=== PATIENT | male | born 1930 | race Caucasian/White ===

== ENCOUNTER 2017-04-17 09:51 | Inpatient (IN) | payer OTHER, MEDICARE ==
[~2017-04-17] VITALS: Ht 167.6 cm; Wt 76.8 kg
[~2017-04-17 09:51] MED LIST: BISCOLAX5 MG PO; COUMADIN 1 MG TA1 MG PO; COUMADIN 5 MG TA5 MG PO; ESCITALOPRAM20 MG PO; VENLAFAXINE HY150 MG PO; VITAMIN D1000 IU PO; XARELTO15 MG PO; XARELTO20 MG PO; [UNRECOGNIZED DRUG - OTHER] PO
[2017-04-17] MEDS ORDERED: GABAPENTIN300 M2 PO (10:24)
[2017-04-17] MEDS ORDERED: TAMSULOSIN HCL0.4 M1 PO (10:24)
[2017-04-17] MEDS ORDERED: WARFARIN SODIUM4 M1 PO (10:24)
--- NOTE | 2017-04-17 10:26 | ED AMS/SEIZURE/WEAK/DIZZY ---
History of Present Illness General Chief Complaint: General Adult Stated Complaint: PER PT WEAK "I CANT STAND UP" Source: patient Exam Limitations: no limitations Vital Signs & Intake/Output Vital Signs & Intake/Output Vital Signs Date Time Temp Pulse Resp B/P B/P Pulse O2 O2 Flow FiO2 Mean Ox Delivery Rate 04/17 1239 96.7 61 15 125/74 95 Room Air Room Air 04/17 1013 Room Air 04/17 0956 97.9 75 16 114/68 99 Room Air Allergies Coded Allergies: Penicillins (UNKNOWN 12/29/16) morphine (UNKNOWN 12/29/16) Reconcile Medications Gabapentin 300 MG CAPSULE 1 CAP PO TID NEURALGIA (Reported) Tamsulosin HCl 0.4 MG CAP.ER.24H 1 CAP PO DAILY BPH (Reported) Warfarin Sodium 4 MG TABLET 1 TAB PO DAILY HEART HEALTH (Reported) Triage Note: PT TO ED FOR FREQUENT FALLS OVER PAST 3 DAYS, STATING HE HAS HIT HIS HEAD "A FEW TIMES" DIFFICULT TO ASSESS D/T DEMENTIA AND UNSURE OF WHAT HAPPENED. PT NOW REPORTING HE HAS BEEN FEELING PROGRESSIVELY MORE WEAK OVER PAST WEEK WELL. Triage Nurses Notes Reviewed? yes Onset: Abrupt Duration: day(s):, constant Timing: recent history No Modifying Factors: none HPI: 87-year-old male comes into the emergency room for further evaluation of frequent falls at home. Patient has been feeling weak. He is also been feeling some dizziness prior to falling. He has been unable to walk recently. Denies any chest pain shortness of breath fever vomiting chills abdominal pain. He is on pain medication for chronic pain from trigeminal neuralgia. Denies any other system symptoms. (Tushar HAUSER,Mateo) Past History Travel History Traveled to [place] past 21 day No Medical History Any Pertinent Medical History? 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 Hepatic: NONE Renal: benign prost hyperplasia Musculoskeletal: degen joint disease, ARTHRITIS Psychiatric: anxiety, MAJOR DEPRESSIVE D/O Endocrine: NONE Blood Disorders: NONE Cancer(s): NONE INTERIOR HORTICULTURIST/Reproductive: NONE History of MRSA: No History of VRE: No History of CDIFF: No Influenza Vaccine: 12/09/16 Surgical History Surgical History: non-contributory Psychosocial History Who do you live with Family Services at Home None What is your primary language Kyrgyz Tobacco Use: Never used ETOH Use: denies use Illicit Drug Use: denies illicit drug use Family History Family History, If Any: MOTHER FH: breast cancer FATHER FH: muscular dystrophy Hx Contributory? No (Mateo Gutierrez) Review of Systems Review of Systems Constitutional: Reports: see HPI. EENTM: Reports: no symptoms. Respiratory: Reports: no symptoms. Cardiovascular: Reports: no symptoms. GI: Reports: no symptoms. Genitourinary: Reports: no symptoms. Musculoskeletal: Reports: see HPI. Skin: Reports: no symptoms. Neurological/Psychological: Reports: no symptoms. Hematologic/Endocrine: Reports: no symptoms. Immunologic/Allergic: Reports: no symptoms. All Other Systems: Reviewed and Negative (Mateo Gutierrez) Physical Exam Physical Exam General Appearance: no apparent distress, alert Head: atraumatic Eyes: Bilateral: normal appearance. Ears, Nose, Throat: normal ENT inspection, hearing grossly normal Neck: normal inspection Respiratory: no respiratory distress Cardiovascular: regular rate/rhythm Back: normal inspection Extremities: limited range of motion (BILATERAL) Neurologic/Psych: awake, alert Skin: intact Core Measures ACS in differential dx? No CVA/TIA Diagnosis No Sepsis Present: No Sepsis Focused Exam Completed? No (Mateo Gutierrez) Progress Differential Diagnosis: arrythmia, alcohol intoxication, benign positional vertigo, CVA/stroke, dehydration, electrolyte imbalance, intracranial Hem., intracranial mass/tumor, pneumonia, presyncope, post-traumatic vertigo, seizure disorder, subarachnoid Hem., UTI/pyelo Plan of Care: Orders Procedure Date/time Status Heart Healthy Diet 04/17 D Active ED Holding Orders 04/17 1254 Active Admit to inpatient 04/17 1254 Active Vital Signs 04/17 1254 Active Code Status 04/17 1254 Active PT Evaluate & Treat 04/17 1025 Active URINALYSIS 04/17 1025 Complete TROPONIN LEVEL 04/17 1025 Complete PARTIAL THROMBOPLASTIN TIME 04/17 1025 Complete PROTHROMBIN TIME 04/17 1025 Complete COMPREHENSIVE METABOLIC PANEL 04/17 1025 Complete CBC WITHOUT DIFFERENTIAL 04/17 1025 Complete EKG 04/17 1025 Active Theraputic Activities 15 Min 04/17 UNK Complete MOBILITY GOAL STATUS 04/17 UNK Complete MOBILITY CURRENT STATUS 04/17 UNK Complete PT EVAL LOW COMPLEX 20 MIN 04/17 UNK Complete Laboratory Tests 04/17/17 1157: Urine Color YEL, Urine Clarity CLEAR, Urine pH 6.0, Ur Specific [place] 1.020, Urine Protein NEG, Urine Ketones NEG, Urine Nitrite NEG, Urine Bilirubin NEG, Urine Urobilinogen 1.0, Ur Leukocyte Esterase NEG, Ur Microscopic EXAM NOT REQUIRED, Urine Hemoglobin NEG, Urine Glucose NEG 04/17/17 1027: Anion Gap 9, Estimated GFR > 60, BUN/Creatinine Ratio 16.4, Glucose 125 H, Calcium 9.9, Total Bilirubin 1.0, AST 16 L, ALT 18 L, Alkaline Phosphatase 68, Troponin I < 0.01, Total Protein 7.0, Albumin 4.0, Globulin 3.0, Albumin/ Globulin Ratio 1.3, PT 25.0 H, INR 2.27 H, APTT 38 H, CBC w Diff NO MAN DIFF REQ, RBC 4.89, MCV 87.4, MCH 28.9, MCHC 33.1, RDW 15.8 H, MPV 6.4 L, Gran % 75.1, Lymphocytes % 16.3 L, Monocytes % 5.7, Eosinophils % 2.3, Basophils % 0.6 , Absolute Granulocytes 5.6, Absolute Lymphocytes 1.2, Absolute Monocytes 0.4, Absolute Eosinophils 0.2, Absolute Basophils 0 Diagnostic Imaging: Viewed by Me: Radiology Read. Discussed w/RAD: Radiology Read. Initial ED EKG: normal sinus rhythm, rate (65) Comments: PATIENT: SHANIA HOLGUIN PRESENT AGE: 87 PATIENT ACCOUNT NO: [id number] : 31 LOCATION: [facility] ORDERING PHYSICIAN: Mateo HAUSER SERVICE DATE: 04/17/17 EXAM TYPE: CAT - CT HEAD WO IV CONTRAST EXAMINATION: CT HEAD WITHOUT CONTRAST CLINICAL INFORMATION: Fall. Hit head. COMPARISON: CT scan of the head dated 12/29/2016 and 10/23/2015. TECHNIQUE: Contiguous axial imaging was performed from the skull base to vertex without intravenous administration of contrast. DLP: 550.22 mGy-cm FINDINGS: There is no evidence of acute intracranial hemorrhage or territorial infarction. No abnormal mass effect or midline shift is seen. Mendez to white matter differentiation is well preserved. No extra-axial fluid collections are identified. The ventricles and sulci are mildly enlarged, consistent with involutional changes. Mild periventricular deep white matter low-attenuation and low-attenuation in the bilateral basal ganglia are again noted, consistent with ischemic small vessel disease and small lacunar infarctions, unchanged. Calcification of the carotid siphons is again noted. The osseous structures and are normal. Multiple punctate calcifications are again seen in the subcutaneous tissues of the forehead. The patient is status post bilateral lens extractions. There is a small air-fluid level or mucous retention cyst again noted in the right sphenoid sinus. Partial opacification of some of the right mastoid air cells is seen. The visualized portions of the remaining paranasal sinuses are well aerated. IMPRESSION: 1. No acute intracranial pathology. 2. Small lacunar infarctions in the basal ganglia and changes of ischemic small vessel disease in the periventricular deep white matter and mild parenchymal volume loss again noted, unchanged. 3. Mild right sphenoid sinus disease and partial opacification of some of the right mastoid air cells. DICTATED BY: Madonna Muro MD DATE/TIME DICTATED:04/17/171116 INTERIOR DECORATOR:BEE DATE/TIME TRANSCRIBED:04/17/171116 CONFIDENTIAL, DO NOT COPY WITHOUT APPROPRIATE AUTHORIZATION. <Electronically signed in Other Vendor System> SIGNED BY: Madonna Muro MD [id number] PATIENT: SHANIA HOLGUIN PRESENT AGE: 87 PATIENT ACCOUNT NO: [id number] : 31 LOCATION: [facility] ORDERING PHYSICIAN: Mateo HAUSER SERVICE DATE: 04/17/171025 EXAM TYPE: RAD - XRY-PORTABLE CHEST XRAY EXAMINATION: XR PORTABLE CHEST CLINICAL INFORMATION: Weakness. COMPARISON: Several prior chest x-rays, most recent of which is dated 05/24/2014. TECHNIQUE: Portable AP semierect view of the chest was obtained. FINDINGS: EKG leads are seen overlying the chest. The cardiomediastinal silhouette is within normal limits in size. Calcification of the aortic arch and mild ectasia and tortuosity of the ascending and descending aorta are noted, unchanged. Lungs bilaterally are symmetrically expanded and demonstrate minimal linear subsegmental atelectasis in the lung bases bilaterally. No focal consolidation, significant effusion or pneumothorax is seen. Degenerative changes as seen in both shoulder joints and mild vertebral spondylosis is noted throughout the mid and lower thoracic spine. Convex right thoracic curvature is noted. IMPRESSION: Bibasilar reticular opacities are noted, consistent with subsegmental atelectasis. No focal pneumonia. DICTATED BY: Madonna Muro MD DATE/TIME DICTATED:04/17/171114 INTERIOR DECORATOR:BEE DATE/TIME TRANSCRIBED:04/17/171114 CONFIDENTIAL, DO NOT COPY WITHOUT APPROPRIATE AUTHORIZATION. <Electronically signed in Other Vendor System> SIGNED BY: Madonna Muro MD 1121 (Mateo Gutierrez) Departure Departure Disposition: STILL A PATIENT Condition: Stable Clinical Impression Primary Impression: Multifactorial gait disorder Secondary Impressions: General weakness Referrals: Alexandria Jones MD (PCP/Family) Departure Forms: Customer Survey General Discharge Information Admission Note Spoke With: Juni Garcia MD Documentation of Exam: Documentation of any treatments & extenuating circumstances including Concerns Regarding Discharge (functional status, medication knowledge or non-compliance, living conditions, etc.) that warrant an admission rather than observation: Patient will require case management. Physical therapy consultation. Patient is not able to ambulate here in the emergency room. Medically not safe for discharge. Patient will require short-term rehabilitation. (Mateo Gutierrez) PA/CLAIM PROCESSOR Co-Sign Statement Statement: ED Attending supervision documentation- [X] I saw and evaluated the patient. I have also reviewed all the pertinent lab results and diagnostic results. I agree with the findings and the plan of care as documented in the PA's/CLAIM PROCESSOR's documentation. [X] I have reviewed the ED Record and agree with the PA's/CLAIM PROCESSOR's documentation. [] Additions or exceptions (if any) to the PAs/CLAIM PROCESSOR's note and plan are summarized below: [Patient is a very high risk to be discharged home. Patient will need admission for physical therapy consultation and treatment case management evaluation.] (Josiah BOBO,Matthias Echeverria)
[2017-04-17 10:43] LABS: ABSOLUTE BASOPHIL COUNT 0 /CUMM (0.0-0.2); ABSOLUTE EOSINOPHIL COUNT 0.2 /CUMM (0.0-0.7); ABSOLUTE GRANULOCYTE CT 5.6 /CUMM (1.4-6.5); ABSOLUTE LYMPH COUNT 1.2 /CUMM (1.2-3.4); ABSOLUTE MONOCYTE COUNT 0.4 /CUMM (0.10-0.60); BASOPHIL % 0.6 % (0.0-2.0); EOSINOPHIL % 2.3 % (0-5); GRANULOCYTE % 75.1 % (42.2-75.2); HEMATOCRIT 42.7 % (42-52); MEAN CORPUSCULAR HGB 28.9 PG (27.0-31.0); MEAN CORPUSCULAR HGB CONC 33.1 G/DL (33.0-37.0); MEAN CORPUSCULAR VOLUME 87.4 FL (80.0-94.0); MEAN PLATELET VOLUME 6.4 FL (7.4-10.4); PLATELET COUNT 296 /CUMM (130-400); RBC DISTRIBUTION WIDTH 15.8 % (11.5-14.5); RED BLOOD CELL CT 4.89 /CUMM (4.70-6.10); WHITE BLOOD CELL COUNT 7.4 /CUMM (4.8-10.8)
[2017-04-17 10:48] LABS: PTT 38 SEC (25-37)
--- NOTE | 2017-04-17 11:21 | RADIOLOGY REPORT ---
EXAMINATION: XR PORTABLE CHEST CLINICAL INFORMATION: Weakness. COMPARISON: Several prior chest x-rays, most recent of which is dated 05/24/2014. TECHNIQUE: Portable AP semierect view of the chest was obtained. FINDINGS: EKG leads are seen overlying the chest. The cardiomediastinal silhouette is within normal limits in size. Calcification of the aortic arch and mild ectasia and tortuosity of the ascending and descending aorta are noted, unchanged. Lungs bilaterally are symmetrically expanded and demonstrate minimal linear subsegmental atelectasis in the lung bases bilaterally. No focal consolidation, significant effusion or pneumothorax is seen. Degenerative changes as seen in both shoulder joints and mild vertebral spondylosis is noted throughout the mid and lower thoracic spine. Convex right thoracic curvature is noted. IMPRESSION: Bibasilar reticular opacities are noted, consistent with subsegmental atelectasis. No focal pneumonia.
--- NOTE | 2017-04-17 11:33 | CT SCAN REPORT ---
EXAMINATION: CT HEAD WITHOUT CONTRAST CLINICAL INFORMATION: Fall. Hit head. COMPARISON: CT scan of the head dated 12/29/2016 and 10/23/2015. TECHNIQUE: Contiguous axial imaging was performed from the skull base to vertex without intravenous administration of contrast. DLP: 550.22 mGy-cm FINDINGS: There is no evidence of acute intracranial hemorrhage or territorial infarction. No abnormal mass effect or midline shift is seen. Mendez to white matter differentiation is well preserved. No extra-axial fluid collections are identified. The ventricles and sulci are mildly enlarged, consistent with involutional changes. Mild periventricular deep white matter low-attenuation and low-attenuation in the bilateral basal ganglia are again noted, consistent with ischemic small vessel disease and small lacunar infarctions, unchanged. Calcification of the carotid siphons is again noted. The osseous structures and are normal. Multiple punctate calcifications are again seen in the subcutaneous tissues of the forehead. The patient is status post bilateral lens extractions. There is a small air-fluid level or mucous retention cyst again noted in the right sphenoid sinus. Partial opacification of some of the right mastoid air cells is seen. The visualized portions of the remaining paranasal sinuses are well aerated. IMPRESSION: 1. No acute intracranial pathology. 2. Small lacunar infarctions in the basal ganglia and changes of ischemic small vessel disease in the periventricular deep white matter and mild parenchymal volume loss again noted, unchanged. 3. Mild right sphenoid sinus disease and partial opacification of some of the right mastoid air cells.
--- NOTE | 2017-04-17 13:17 | History & Physical ---
Farzaneh BOBO,Nisreen 04/17/17 1316: General Information and HPI MD Statement: I have seen and personally examined SHANIA HOLGUIN and documented this H&P. The patient is a 87 year old M who presented with a patient stated chief complaint of [frequent falls and weakness]. Source of Information: patient, family, old records Exam Limitations: dementia History of Present Illness: 87-year-old male with past medical history of trigeminal neuralgia dementia, DVT on coumadinn, BPH, arthritis, anxiety, depression, Zenker's diverticulum present with complaints of frequent falls at home in the past 3-4 days. He also reports urinary incontinence but no fecal incontinence. He reports generalized weakness and dizziness, as well as strinking the back of his head when he fell. He denies any vision changes, headaches, palpitations, chest pain, shortness of breath, fever, nausea, vomiting, chills, or abdominal pain. He takes gabapentin for chronic pain from trigeminal neuralgia. 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 Hepatic: NONE Renal: benign prost hyperplasia Musculoskeletal: degen joint disease, ARTHRITIS Psychiatric: anxiety, MAJOR DEPRESSIVE D/O Endocrine: NONE Blood Disorders: NONE Cancer(s): NONE DIGITAL ADVERTISING SPECIALIST/Reproductive: NONE History of MRSA: No History of VRE: No History of CDIFF: No Influenza Vaccine: 12/09/16 Surgical History Surgical History: non-contributory Past Family/Social History Family History Relations & Conditions if any MOTHER FH: breast cancer FATHER FH: muscular dystrophy Psychosocial History Services at Home: None ETOH Use: denies use Illicit Drug Use: denies illicit drug use Review of Systems Review of Systems Constitutional: Reports: no symptoms. Exam & Diagnostic Data Last 24 Hrs of Vital Signs/I&O Vital Signs Date Time Temp Pulse Resp B/P B/P Pulse O2 O2 Flow FiO2 Mean Ox Delivery Rate 04/17 1239 96.7 61 15 125/74 95 Room Air Room Air 04/17 1013 Room Air 04/17 0956 97.9 75 16 114/68 99 Room Air Intake & Output 04/17 1600 04/17 0800 04/17 0000 Intake Total Output Total 50 Balance -50 Output, Urine 50 Patient 175 lb Weight Weight Reported by Patient Measurement Method Physical Exam General Appearance Alert, Oriented X3, Cooperative, No Acute Distress HEENT PERRLA, EOMI, Mucous Membr. moist/pink Cardiovascular Regular Rate, Normal S1, Normal S2 Lungs Clear to Auscultation, Normal Air Movement Abdomen Normal Bowel Sounds, Soft, No Tenderness, abd wall hernia Neurological Strength at 5/5 X4 Ext, Sensation Intact Extremities Normal Pulses, 1+ edema, 5/5 strength Last 24 Hrs of Labs/Matt: Laboratory Tests 04/17/17 1157: Urine Color YEL, Urine Clarity CLEAR, Urine pH 6.0, Ur Specific [place] 1.020, Urine Protein NEG, Urine Ketones NEG, Urine Nitrite NEG, Urine Bilirubin NEG, Urine Urobilinogen 1.0, Ur Leukocyte Esterase NEG, Ur Microscopic EXAM NOT REQUIRED, Urine Hemoglobin NEG, Urine Glucose NEG 04/17/17 1027: Anion Gap 9, Estimated GFR > 60, BUN/Creatinine Ratio 16.4, Glucose 125 H, Calcium 9.9, Total Bilirubin 1.0, AST 16 L, ALT 18 L, Alkaline Phosphatase 68, Troponin I < 0.01, Total Protein 7.0, Albumin 4.0, Globulin 3.0, Albumin/ Globulin Ratio 1.3, PT 25.0 H, INR 2.27 H, APTT 38 H, CBC w Diff NO MAN DIFF REQ, RBC 4.89, MCV 87.4, MCH 28.9, MCHC 33.1, RDW 15.8 H, MPV 6.4 L, Gran % 75.1, Lymphocytes % 16.3 L, Monocytes % 5.7, Eosinophils % 2.3, Basophils % 0.6 , Absolute Granulocytes 5.6, Absolute Lymphocytes 1.2, Absolute Monocytes 0.4, Absolute Eosinophils 0.2, Absolute Basophils 0 Diagnostic Data CXR Results Bibasilar reticular opacities are noted, consistent with subsegmental atelectasis. No focal pneumonia. Other Results CT head IMPRESSION: 1. No acute intracranial pathology. 2. Small lacunar infarctions in the basal ganglia and changes of ischemic small vessel disease in the periventricular deep white matter and mild parenchymal volume loss again noted, unchanged. 3. Mild right sphenoid sinus disease and partial opacification of some of the right mastoid air cells. Assessment/Plan Assessment: 87-year-old male with past medical history of trigeminal neuralgia dementia, DVT , BPH, arthritis, anxiety, depression, Zenker's diverticulum present with complaints of frequent falls at home in the past 3-4 days. Patient has been feeling weak with some dizziness, dizziness prior to falling. He denies any chest pain shortness of breath, fever, vomiting, chills, abdominal pain. He takes gabapentin for chronic pain from trigeminal neuralgia. Assessment 1. Multifactorial gait disorder r/o NPH 2. Generalized weakness 3. Hx of DVT on coumadin 4. Hx of Trigeminal neuralgia 5. Hx of Dementia Plan Admit to general medicine floor MRI head Carotid US Orthostats Physical therapy Patient will likely need short-term rehabilitation Case management evaluation Adequate pain management as needed Maintenance IVF N/S at 50cc/hr Recheck INR in AM and dose coumadin as needed Continue his impt home medications Heart Healthy diet DVT ppx with warfarin-INR therapeutic today Follow attending recommendations As Ranked By This Provider Problem List: 1. Multifactorial gait disorder Core Measures/Misc (10/25) Acute Coronary Syndrome ACS Diagnosis: No Congestive Heart Failure Congestive Heart Failure Diagnosis No Cerebrovascular Accident CVA/TIA Diagnosis: No VTE (View Protocol) VTE Risk Factors Acute Medical Illness No Mechanical VTE Prophylaxis d/t N/A MechProphylax Ordered No VTE Pharm Prophylaxis d/t NA PharmProphylax ordered Sepsis (View protocol) Sepsis Present: No Resident Review Statement Resident Statement: examined this patient Other Findings: see HPI Juni Garcia 04/17/17 1601: Attending MD Review Statement Attending Statement Attending MD Statement: examined this patient, discuss w/resident/PA/CRIMINAL JUSTICE PROFESSOR, agreed w/resident/PA/CRIMINAL JUSTICE PROFESSOR, discussed with family, reviewed EMR data (avail), discussed with nursing, discussed with case mgmt, reviewed images, amended to note Attending Assessment/Plan: 87 o/m with pmh of dementia, cataract, DVT on coumadin, zekner diverticulum , bph, degenrative joint disease, comes with recurrent falls in past 4 days. No LOC. No seizure like activity. No dizziness. He uses walker at home for ambulation. Denies vision changes, headache, chest pain, palpaitaions. PE unremarkable with no focal weakness. Labs and imaging noted. CT with chronic ischemic vessel diaseas and small lacunar infarcts appear to be old. Chest xray with subsegmental atelectasis. UA negative. INR 2.27. Admit to inaptient medical services. Will obtain MRI brain for recurrent falls, USG carotid, orthostats check, PT consult. Case management consult. Plan of care d/wed patinet and bedside.
[2017-04-17 16:45] VITALS: BP 133/79
[2017-04-17 22:16] VITALS: BP 122/70
[2017-04-17 23:47] VITALS: BP 125/72
[2017-04-18 06:20] VITALS: BP 133/74
[2017-04-18 08:50] LABS: ABSOLUTE BASOPHIL COUNT 0.1 /CUMM (0.0-0.2); ABSOLUTE EOSINOPHIL COUNT 0.2 /CUMM (0.0-0.7); ABSOLUTE GRANULOCYTE CT 4.6 /CUMM (1.4-6.5); ABSOLUTE LYMPH COUNT 1.2 /CUMM (1.2-3.4); ABSOLUTE MONOCYTE COUNT 0.5 /CUMM (0.10-0.60); BASOPHIL % 0.9 % (0.0-2.0); EOSINOPHIL % 3.3 % (0-5); GRANULOCYTE % 69.8 % (42.2-75.2); MEAN CORPUSCULAR HGB 29.1 PG (27.0-31.0); MEAN CORPUSCULAR HGB CONC 33.3 G/DL (33.0-37.0); MEAN CORPUSCULAR VOLUME 87.5 FL (80.0-94.0); MEAN PLATELET VOLUME 6.9 FL (7.4-10.4); PLATELET COUNT 262 /CUMM (130-400); RBC DISTRIBUTION WIDTH 15.3 % (11.5-14.5); RED BLOOD CELL CT 4.34 /CUMM (4.70-6.10); WHITE BLOOD CELL COUNT 6.6 /CUMM (4.8-10.8)
--- NOTE | 2017-04-18 10:05 | PN- Housestaff ---
Farzaneh BOBO,Nisreen 04/18/17 1005: Subjective Follow-up For: 1. Multifactorial gait disorder r/o NPH 2. Generalized weakness 3. Hx of DVT on coumadin 4. Hx of Trigeminal neuralgia 5. Hx of Dementia Complaints: no complaints Subjective: Pt seen and examined. Review of Systems Constitutional: Reports: no symptoms. Objective Last 24 Hrs of Vital Signs/I&O Vital Signs Date Time Temp Pulse Resp B/P B/P Pulse O2 O2 Flow FiO2 Mean Ox Delivery Rate 04/18 0959 57 133/74 04/18 0620 98.1 57 18 133/74 94 Room Air 04/17 2347 64 125/72 04/17 2216 97.8 65 18 122/70 93 Room Air 04/17 1645 98.0 72 20 133/79 98 Room Air 04/17 1535 97.6 76 18 124/76 96 Room Air 04/17 1239 96.7 61 15 125/74 95 Room Air Room Air Intake & Output 04/18 1600 04/18 0800 04/18 0000 Intake Total 300 640 300 Output Total Balance 300 640 300 Intake, IV 400 100 Intake, Oral 300 240 200 Number 1 0 Bowel Movements Patient 167 lb 163 lb Weight Weight Bed scale Bed scale Measurement Method Physical Exam General Appearance: Alert, Cooperative, oriented x 2 HEENT: Mucous Membr. moist/pink Cardiovascular: Regular Rate, Normal S1, Normal S2 Lungs: Clear to Auscultation, Normal Air Movement Abdomen: Soft, No Tenderness Extremities: 1+ pedal edema bilaterally Current Medications: Current Medications Sig/Gi Start time Last Medication Dose Route Stop Time Status Admin Enoxaparin Sodium 30 MG DAILY 04/17 2105 AC 04/18 SC 0959 Gabapentin 300 MG TID 04/17 2199 AC 04/18 PO 0958 Polyethylene Glycol 17 GM AT BEDTIME 04/17 2199 AC 04/17 PO 2223 Sodium Chloride 1,000 ML .Q20H 04/17 2114 AC 04/17 IV 2127 Tamsulosin HCl 0.4 MG DAILY 04/18 1000 AC 04/18 PO 0959 Warfarin Sodium 4 MG DAILY 04/18 1000 CAN PO Last 24 Hrs of Lab/Matt Results Last 24 Hrs of Labs/Mics: Laboratory Tests 04/18/17 0715: Anion Gap 8, Estimated GFR > 60, BUN/Creatinine Ratio 20.0, CBC w Diff NO MAN DIFF REQ, RBC 4.34 L, MCV 87.5, MCH 29.1, MCHC 33.3, RDW 15.3 H, MPV 6.9 L, Gran % 69.8, Lymphocytes % 18.7 L, Monocytes % 7.3, Eosinophils % 3.3, Basophils % 0.9, Absolute Granulocytes 4.6, Absolute Lymphocytes 1.2, Absolute Monocytes 0.5, Absolute Eosinophils 0.2, Absolute Basophils 0.1 04/17/17 1157: Urine Color YEL, Urine Clarity CLEAR, Urine pH 6.0, Ur Specific [place] 1.020, Urine Protein NEG, Urine Ketones NEG, Urine Nitrite NEG, Urine Bilirubin NEG, Urine Urobilinogen 1.0, Ur Leukocyte Esterase NEG, Ur Microscopic EXAM NOT REQUIRED, Urine Hemoglobin NEG, Urine Glucose NEG Assessment/Plan Assessment: 87-year-old male with past medical history of trigeminal neuralgia dementia, DVT , BPH, arthritis, anxiety, depression, Zenker's diverticulum present with complaints of frequent falls at home in the past 3-4 days. Patient has been feeling weak with some dizziness, dizziness prior to falling. He denies any chest pain shortness of breath, fever, vomiting, chills, abdominal pain. He takes gabapentin for chronic pain from trigeminal neuralgia. Assessment 1. Multifactorial gait disorder r/o NPH 2. Generalized weakness 3. Hx of DVT on coumadin 4. Hx of Trigeminal neuralgia 5. Hx of Dementia Plan F/u MRI head F/U Carotid US Orthostats neg Physical therapy Patient will need short-term rehabilitation Case management evaluation Maintenance IVF N/S at 50cc/hr F/U INR and dose coumadin as needed Continue his impt home medications Heart Healthy diet DVT ppx with warfarin-INR pending Follow attending recommendations Problem List: 1. Multifactorial gait disorder 2. Weakness 3. Dementia Pain Ratin Pain Location: na Pain Goal: Remain pain free Pain Plan: na Tomorrow's Labs & Rationales: INR, CBC Juni Garcia 04/18/17 1059: Attending MD Review Statement Attending Statement Attending MD Statement: examined this patient, discuss w/resident/PA/MOLDED GOODS INSPECTOR TRIMMER, agreed w/resident/PA/MOLDED GOODS INSPECTOR TRIMMER, discussed with family, reviewed EMR data (avail), discussed with nursing, discussed with case mgmt, reviewed images, amended to note Attending Assessment/Plan: 87 o/m with pmh of dementia, cataract, DVT on coumadin, zekner diverticulum , bph, degenrative joint disease, comes with recurrent falls in past 4 days. No LOC. No seizure like activity. No dizziness. He uses walker at home for ambulation. Denies vision changes, headache, chest pain, palpaitaions. PE unremarkable with no focal weakness. Labs and imaging noted. CT with chronic ischemic vessel diaseas and small lacunar infarcts appear to be old. Chest xray with subsegmental atelectasis. UA negative. INR 2.27. Admit to inaptient medical services. f/u MRI brain for recurrent falls, USG carotid, orthostats f/u, PT consult. Case management consult. Plan of care d/wed patinet and bedside.
--- NOTE | 2017-04-18 11:53 | Discharge Summary ---
Visit Information Visit Dates Admission Date: 04/17/17 Discharge Date: 04/28/17 Hospital Course Course Attending Physician: Dr. Rosanne Rincon Primary Care Physician: Alexandria Jones MD Consulting Request: Consulting Specialty: Psychiatry Hospital Course: 87-year-old male with past medical history of trigeminal neuralgia dementia, DVT , BPH, arthritis, anxiety, depression, Zenker's diverticulum who presented with complaints of frequent falls at home 3-4 days prior to admission. Patient has been feeling weak and had some dizziness prior to falling. He denied any chest pain, shortness of breath, fever, vomiting, chills, or abdominal pain on presentaion. He takes gabapentin for chronic pain from trigeminal neuralgia. Assessment 1. Multifactorial gait disorder MRI head, CT head and CXR negative for an acute process. Carotid US does not show any hemodynamically significant stenosis. Orthostats negative. Will need to continue physical therapy for re-conditioning. 2. Fracture of the R 5th metatarsal Foud on foot xray after patient began complaining of right foot pain while undergoing physical therapy. On exam foot was found to be mildly swollen so a foot a xray was obtained which showed a non-displaced right 5th metatarsal. Plan is for conservative management with surgical boot, ambulate as tolerated. Continue ice and elevation. Outpatient follow up with podiatry recommended. 3. History of Depression, anxiety and dementia with suicidal ideation Initially he was not on medication for depression and anxiety, however his hospital course was complicated by patient's expression of suicidal ideation, saying "he will hurt himself if given the chance". He was also found to have a plan of throwing himself down the stairs if given the opportunity. He is pre- occupied with his finaces and does not want to eave his banckrupt due to the financial burden of his illness. He was placed on a 1:1 sitter and after a psychiatric evaluation he was started on Depakote sprinkles 125mg twice a day and sertraline 150mg daily. After re-evaluation by psychiatrist, her 1:1 sitter was discontinued and patient has remained stable in the past 24hrs. Plan is for [facility] placement. Please watch for any suicidal tendencies 4. History of DVT on coumadin Patient is on 4mg of coumadin daily at home which was continued in the hospital. He was monitored with daily INR and INR on discharge is 2.0. Please continue regular INR check and dose coumadin as needed. 5. History of Trigeminal neuralgia Stable. Please continue his home dose of Gabapentin 300mg TID 6. History of BPH Continue Tamsulosin 0.4mg daily Complications: Suicidal Ideation Allergies: Coded Allergies: Penicillins (UNKNOWN 12/29/16) morphine (UNKNOWN 12/29/16) Significant Procedures: none Disposition Summary Disposition Principal Diagnosis: Mutifactorial gait disorder Generalized weakness Depression, Anxiety with Suicidal ideation Dementia Non-displaced fracture of the 5th metatarsal on the Right foot Additional Diagnosis: History of DVT on coumadin, Trigeminal neuralgia, History of BPH Discharge Disposition: SNF Discharge Instructions General Discharge Information Code Status: Full Code Patient's Diet: Heart healthy Patient's Activity: As tolerated Physical therapy for re-conditioning Follow-Up Instructions/Appts: Follow up with your PCP in 1 week Follow-up with Dr. Travis, Entertainment Musician, within 2 weeks of discharge. We have provided you with a referral to evaluate your toe fracture. Check INR q week and dose coumadin to keep INR therapeutic 2-3 Medications at Discharge Discharge Medications: Continue taking these medications: Tamsulosin HCl (Tamsulosin HCl) 0.4 MG CAP.ER.24H 1 Capsule ORAL DAILY Qty = 60 Comments: Last Taken:04/28/17 Time:9AM Warfarin Sodium (Warfarin Sodium) 4 MG TABLET 1 Tablet ORAL DAILY Qty = 30 Comments: Last Taken:04/27/17 Time:4PM Gabapentin (Gabapentin) 300 MG CAPSULE 1 Capsule ORAL THREE TIMES DAILY Qty = 540 Comments: Last Taken:04/28/17 Time:9AM Start taking the following new medications: Divalproex Sodium (Depakote Sprinkle) 125 MG CAP.SPRINK 125 Milligram ORAL TWICE DAILY Qty = 30 No Refills Comments: Last Taken:04/28/17 Time:9AM Sertraline HCl (Zoloft) 100 MG TABLET 150 Milligram ORAL DAILY Qty = 30 No Refills Comments: Last Taken: 150MG GIVEN 04/28/17 AT 9AM Copies To: Robert BOBO,[place]; Jerrod Travis DPM
[2017-04-18 13:12] LABS: PT 24.1 SEC (9.4-12.5)
[2017-04-18 13:47] VITALS: BP 118/62
--- NOTE | 2017-04-18 14:47 | ULTRASOUND REPORT ---
EXAMINATION: DUPLEX BILATERAL CAROTID ULTRASOUND CLINICAL INFORMATION: Recurrent falls. COMPARISON: Carotid ultrasound 05/30/2012. TECHNIQUE: Duplex bilateral carotid US was performed using real-time ultrasound and Doppler techniques (integrating B-mode 2D vascular images, Doppler spectral analysis and color flow Doppler imaging). These techniques were utilized to interrogate the extracranial carotid and vertebral arteries bilaterally. The degree of stenosis is based off criteria similar to NASCET. FINDINGS: No plaque is seen at the carotid bifurcations or within the internal carotid arteries. All velocities are within normal limits. The vertebral arteries show antegrade flow. The external carotid arteries appear normal. IMPRESSION: No evidence of a hemodynamically significant stenosis involving the internal carotid arteries.
[2017-04-18 22:21] VITALS: BP 138/77
[2017-04-19 06:20] VITALS: BP 128/76
--- NOTE | 2017-04-19 07:19 | PN- Housestaff ---
Abdirahman BOBO,Matthias 04/19/17 0719: Subjective Follow-up For: Multifactorial gait disorder r/o NPH Generalized weakness Suicidal ideatoion Subjective: Patient was seen and examined at bedside. He is resting comfortably. Overnight he reportedly expressed suicidal ideations and compared frustrated with the nursing staff. He was placed on a one-to-one sitter. He continues to express frustration and states that he feels depressed about the impending cost of his hospitalization. Says that reports that he does consider hurting or killing himself but has never formulated a plan to enact these thoughts. He has no complaints of pain, denies any chest pain, shortness of breath, nausea, vomiting , fever, chills. Review of Systems Constitutional: Reports: no symptoms. EENTM: Reports: no symptoms. Cardiovascular: Reports: no symptoms. Respiratory: Reports: no symptoms. Gastrointestinal: Reports: no symptoms. Genitourinary: Reports: no symptoms. Musculoskeletal: Reports: no symptoms. Neurological/Psychological: Reports: see HPI, depressed, other. Objective Last 24 Hrs of Vital Signs/I&O Vital Signs Date Time Temp Pulse Resp B/P B/P Pulse O2 O2 Flow FiO2 Mean Ox Delivery Rate 04/19 0620 98.2 57 18 128/76 94 Room Air 04/18 2221 97.9 64 20 138/77 95 Room Air 04/18 1347 97.8 71 20 118/62 95 04/18 0959 57 133/74 Intake & Output 04/19 0800 04/19 0000 04/18 1600 Intake Total 400 150 800 Output Total 500 250 Balance -100 -100 800 Intake, IV 400 100 Intake, Oral 50 800 Number 1 1 1 Bowel Movements Output, Urine 500 250 Patient 169 lb Weight Weight Bed scale Measurement Method Physical Exam General Appearance: Alert, Oriented X3, Cooperative, No Acute Distress Skin Temp/Moisture Exam: Warm/Dry Cardiovascular: Regular Rate, Normal S1, Normal S2 Lungs: Clear to Auscultation, Normal Air Movement Abdomen: Normal Bowel Sounds, Soft, No Tenderness Neurological: Normal Speech, Normal Tone, Sensation Intact Extremities: No Clubbing, No Cyanosis, No Edema Current Medications: Current Medications Sig/Gi Start time Last Medication Dose Route Stop Time Status Admin Enoxaparin Sodium 30 MG DAILY 04/17 2105 AC 04/18 SC 0959 Gabapentin 300 MG TID 04/17 2199 AC 04/18 PO 2222 Polyethylene Glycol 17 GM AT BEDTIME 04/17 2200 AC 04/17 PO 2223 Sodium Chloride 1,000 ML .Q20H 04/17 2115 AC 04/18 IV 1836 Tamsulosin HCl 0.4 MG DAILY 04/18 1000 AC 04/18 PO 0959 Warfarin Sodium 4 MG COUMADIN 1700 ONE 04/18 1700 DC 04/18 PO 04/18 1701 1700 Last 24 Hrs of Lab/Matt Results Last 24 Hrs of Labs/Mics: Laboratory Tests 04/18/17 1246: PT 24.1 H, INR 2.19 H 04/18/17 1100: PT Cancelled, INR Cancelled Assessment/Plan Assessment: Patient is an 87-year-old male with a PMH significant for trigeminal neuralgia, dementia, DVT on warfarin, BPH, arthritis, anxiety, depression, Zenker's diverticulum who presented complaining of frequent falls at home. He has been experiencing weakness with associated dizziness and falls. He denies any associated symptoms indicative of neuro cardiogenic syncope. #Multifactorial gait disorder with associated weakness -Follow-up MRI results to rule out possible NPH, although this could possibly represent physical deconditioning -Follow-up physical therapy and medications #History of depression with suicidal ideations Patient is not an active plan, and does not seem to be a threat to himself at this time, he admits to being frustrated with the current situation and feeling depressed about the impending medical bills from this hospitalization -Psychiatry consult has been placed, will follow-up recommendations #Chronic medical problems -Continue home medications -Dose Coumadin based on INR Diet: Heart healthy DVT prophylaxis: Warfarin CODE STATUS: Full code Problem List: 1. Dementia 2. Multifactorial gait disorder 3. Depression 4. Suicidal ideation Pain Ratin Pain Location: none Pain Goal: Remain pain free Pain Plan: pain pathway Tomorrow's Labs & Rationales: none Severo Salazar MD 04/19/17 1432: Attending MD Review Statement Attending Statement Attending MD Statement: examined this patient, discuss w/resident/PA/SHOP SUPERINTENDENT, agreed w/resident/PA/SHOP SUPERINTENDENT, reviewed EMR data (avail) Attending Assessment/Plan: Follow up MRI, psychiatry consult, PT eval, continue home medications
[2017-04-19 09:10] LABS: ABSOLUTE BASOPHIL COUNT 0.1 /CUMM (0.0-0.2); ABSOLUTE EOSINOPHIL COUNT 0.3 /CUMM (0.0-0.7); ABSOLUTE GRANULOCYTE CT 4.9 /CUMM (1.4-6.5); ABSOLUTE LYMPH COUNT 1.2 /CUMM (1.2-3.4); ABSOLUTE MONOCYTE COUNT 0.5 /CUMM (0.10-0.60); BASOPHIL % 0.8 % (0.0-2.0); EOSINOPHIL % 3.9 % (0-5); GRANULOCYTE % 71.1 % (42.2-75.2); HEMATOCRIT 39.1 % (42-52); MEAN CORPUSCULAR VOLUME 87.9 FL (80.0-94.0); MEAN PLATELET VOLUME 6.7 FL (7.4-10.4); PLATELET COUNT 276 /CUMM (130-400); RBC DISTRIBUTION WIDTH 15.5 % (11.5-14.5); RED BLOOD CELL CT 4.44 /CUMM (4.70-6.10); WHITE BLOOD CELL COUNT 6.9 /CUMM (4.8-10.8)
[2017-04-19 09:33] LABS: PT 20.1 SEC (9.4-12.5)
--- NOTE | 2017-04-19 12:22 | MRI REPORT ---
EXAMINATION: MR BRAIN WITHOUT AND WITH CONTRAST CLINICAL INFORMATION: 87-year-old man with recurrent falls and urinary incontinence. COMPARISON: 04/17/[address] TECHNIQUE: MRI of the brain was obtained using routine sequences before and after the intravenous administration of 7 mL of Gadavist. FINDINGS: Scattered patchy and punctate foci of increased T2 signal are seen throughout the supratentorial and pontine white matter, presumably a manifestation of moderate chronic microvascular ischemic changes. The ventricles and sulcal spaces are diffusely prominent due to chronic volume loss. No focal reduced diffusion is seen to suggest acute or subacute cerebral ischemia. No intracranial mass, intracerebral edema, intra-axial blood products, midline shift, or extra-axial collection is visualized. No pathologic enhancement is appreciated on postcontrast sequences. Normal arterial and venous vascular flow voids are present. A mucus retention cyst is visible in the right maxillary sinus. IMPRESSION: Motion degraded exam demonstrates moderate chronic small vessel ischemic changes and volume loss. No imaging evidence of acute cerebral ischemia or hemorrhage.
--- NOTE | 2017-04-19 13:06 | Cons- Psychiatry ---
Psychiatric Consult Date of Consult: 04/19/17 Reason for Consult: SI Allergies: Coded Allergies: Penicillins (UNKNOWN 12/29/16) morphine (UNKNOWN 12/29/16) Past History Past Medical History Neurological: dementia EENT: cataracts Cardiovascular: DVT Respiratory: NONE Gastrointestinal: DIVERTICUM OF ESOPHAGUS ZERIKER DIVERTICULUM Hepatic: NONE Renal: benign prost hyperplasia Musculoskeletal: degen joint disease, ARTHRITIS Psychiatric: anxiety, MAJOR DEPRESSIVE D/O Endocrine: NONE Blood Disorders: NONE Cancer(s): NONE CARBON BLOCKS PRESS OPERATOR/Reproductive: NONE Past Surgical History Surgical History: non-contributory Psychosocial History Strengths/Capabilities: Supportive and son Desire to feel better Compliant with anti-depressant Physical Limitations (Interventions): Reports intermittent difficulty swallowing Psychiatric Treatment History Risk Factors: age (under 24/over 65), chronic/serious med cond., isolate/no social support, male Assessment/Plan Impression: Pt seen and examined, chart and labs reviewed. This is an 87 y/o gentleman w/ PMH trigeminal neuralgia, DVT, BPH, arthritis, Zenker's diverticulum, dementia, depression and anxiety who presented to ED BIB after several falls. Hit head but no loss of consciousness. Consult called for depression and patient making statements that he wants to . Pt reports feeling hopeless with low mood, many preoccupations, wanting to just , "I just want to go to sleep and not wake up." Pt preoccupied with finances, relationship with , discusses long life of pain. States he will hurt himself in the hospital is he gets a chance. He will not divulge how he would accomplish this. "I dont want to tell you." Then states he will make himself fall or swallow all his pills. Per nursing pt confused last night, ?, 1:1 states he has been pleasant this am. states she has never seen him this bad and is moved to tears. No AH, VH, HI. No other complaints. Past psych HX: Unable to recall. states he has been on antidepressants, not working. No substance abuse. Mild dementia. FH: believes his mother was depressed. Pt states she was angry all the time. 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 Graduated high school. MSE: Elderly gentleman in [facility] sitting up in chair in NAD. Pleasant and cooperative. Speech is clear. Thought form is linear Thought content sadness, depressive cognitions, suicidal ideation with plan and intent. Insight: knows he is depressed, not aware he can be treated and feel better. Judgment poor Lab ALT 18 U/L L 04/17/17 1027 AST 16 U/L L 04/17/17 1027 Albumin 4.0 g/dL 04/17/17 1027 BUN 20 mg/dL 04/18/17 0715 Carbon Dioxide 24 mmol/L 04/18/17 0715 Chloride 106 mmol/L 04/18/17 0715 Creatinine 1.0 mg/dL 04/18/17 0715 Glucose 125 mg/dL H 04/17/17 1027 Potassium 4.3 mmol/L 04/18/17 0715 Sodium 138 mmol/L 04/18/17 0715 INR 1.83 H 04/19/17 0735 Hct 39.1 % L 04/19/17 0735 Hgb 12.9 G/DL L 04/19/17 0735 Plt Count 276 /CUMM 04/19/17 0735 Urine Nitrite NEG 04/17/17 1157 Meds: At home on zoloft 150 mg Qdaily, depakote sprinkles 125 mg BID Allergies PCN, morphine Current Medications Sig/Gi Start time Last Medication Dose Route Stop Time Status Admin Enoxaparin Sodium 30 MG DAILY 04/17 2106 AC 04/18 SC 0959 Gabapentin 300 MG TID 04/17 2200 AC 04/18 PO 2222 Polyethylene Glycol 17 GM AT BEDTIME 04/17 2200 AC 04/17 PO 2223 Sodium Chloride 1,000 ML .Q20H 04/17 2115 AC 04/18 IV 1836 Tamsulosin HCl 0.4 MG DAILY 04/18 1000 AC 04/18 PO 0959 Warfarin Sodium 4 MG COUMADIN 1700 ONE 04/18 1700 DC 04/18 PO 04/18 1701 1700 A/ 87 yo MWM w/ MMP depression, dementia and anxiety who presented for frequent falls, MRI pending. Suggestin:1 patient is actively suicidal Restart sertraline 150 mg qDaily Restart depakote sprinkles 125 mg BID Pt requires d/c to psych bed; prefers local [place] or [place]; will search for bed and follow up. Thank you for this consult. Gris Moreno MD Pager #[phone]
[2017-04-19 14:16] VITALS: BP 120/73
[2017-04-19 23:09] VITALS: BP 123/81
--- NOTE | 2017-04-20 06:54 | PN- Housestaff ---
Abdirahman BOBO,Matthias 04/20/17 0653: Subjective Follow-up For: Multifactorial gait disorder r/o NPH Generalized weakness Suicidal ideatoion Subjective: Patient was seen and examined at bedside. He is resting comfortably. No acute events overnight. He has been on continuous patient safety monitoring since his initial suicidal ideation. He has no new complaints but continues to report episodes of depression and suicidal ideations. He claims that these are not persistent thoughts but do occur occasionally and have happened since our last meeting yesterday. He offers no new complaints. Review of Systems Constitutional: Reports: weakness. EENTM: Reports: no symptoms. Cardiovascular: Reports: no symptoms. Respiratory: Reports: no symptoms. Gastrointestinal: Reports: no symptoms. Genitourinary: Reports: no symptoms. Musculoskeletal: Reports: no symptoms. Objective Last 24 Hrs of Vital Signs/I&O Vital Signs Date Time Temp Pulse Resp B/P B/P Pulse O2 O2 Flow FiO2 Mean Ox Delivery Rate 04/19 2309 98.6 73 18 123/81 94 04/19 1416 97.4 74 20 120/73 95 04/19 0748 128/76 Intake & Output 04/20 0800 04/20 0000 04/19 1600 Intake Total 700 250 Output Total 300 Balance 400 250 Intake, IV 400 Intake, Oral 300 250 Output, Urine 300 Physical Exam General Appearance: Alert, Oriented X3, Cooperative, No Acute Distress Skin Temp/Moisture Exam: Warm/Dry Cardiovascular: Regular Rate, Normal S1, Normal S2 Lungs: Clear to Auscultation, Normal Air Movement Abdomen: Normal Bowel Sounds, Soft, No Tenderness Extremities: No Clubbing, No Cyanosis, No Edema Current Medications: Current Medications Sig/Gi Start time Last Medication Dose Route Stop Time Status Admin Divalproex Sodium 125 MG BID 04/19 2199 AC 04/19 PO 2123 Enoxaparin Sodium 30 MG DAILY 04/17 2105 AC 04/19 SC 0748 Gabapentin 300 MG TID 04/17 2199 AC 04/19 PO 212 Patient Medication 1 ED ONE ONE 04/19 1615 DC Teaching ED 04/19 1616 Polyethylene Glycol 17 GM AT BEDTIME 04/17 2199 AC 04/17 PO 2223 Sertraline HCl 150 MG DAILY 04/19 1600 AC 04/19 PO 1659 Sodium Chloride 1,000 ML .Q20H 04/17 2114 AC 04/19 IV 2131 Tamsulosin HCl 0.4 MG DAILY 04/18 1000 AC 04/19 PO 0748 Warfarin Sodium 5 MG COUMADIN 1700 04/19 1700 DC 04/19 PO 04/19 1362 4175 Last 24 Hrs of Lab/Matt Results Last 24 Hrs of Labs/Mics: Laboratory Tests 04/19/17 0735: PT 20.1 H, INR 1.83 H, CBC w Diff NO MAN DIFF REQ, RBC 4.44 L, MCV 87.9, MCH 29.0, MCHC 33.0, RDW 15.5 H, MPV 6.7 L, Gran % 71.1, Lymphocytes % 17.6 L, Monocytes % 6.6, Eosinophils % 3.9, Basophils % 0.8, Absolute Granulocytes 4.9, Absolute Lymphocytes 1.2, Absolute Monocytes 0.5, Absolute Eosinophils 0.3, Absolute Basophils 0.1 Orders Radiology Findings: MRI head FINDINGS: Scattered patchy and punctate foci of increased T2 signal are seen throughout the supratentorial and pontine white matter, presumably a manifestation of moderate chronic microvascular ischemic changes. The ventricles and sulcal spaces are diffusely prominent due to chronic volume loss. No focal reduced diffusion is seen to suggest acute or subacute cerebral ischemia. No intracranial mass, intracerebral edema, intra-axial blood products, midline shift, or extra-axial collection is visualized. No pathologic enhancement is appreciated on postcontrast sequences. Normal arterial and venous vascular flow voids are present. A mucus retention cyst is visible in the right maxillary sinus. IMPRESSION: Motion degraded exam demonstrates moderate chronic small vessel ischemic changes and volume loss. No imaging evidence of acute cerebral ischemia or hemorrhage. Assessment/Plan Assessment: Patient is an 87-year-old male with a PMH significant for trigeminal neuralgia, dementia, DVT on warfarin, BPH, arthritis, anxiety, depression, Zenker's diverticulum who presented complaining of frequent falls at home. He has been experiencing weakness with associated dizziness and falls. He denies any associated symptoms indicative of neuro cardiogenic syncope. #Multifactorial gait disorder with associated weakness MRI showed chronic small vessel ischemic changes. With no acute pathology -Follow-up physical therapy for recommendations #History of depression with suicidal ideations Patient continues to complain of depression with suicidal ideation -Started on sertraline and Depakote, all these medications can interact with warfarin it is moderately, and interaction and we will be monitoring his INR closely. -Psychiatry as recommended placement in a geriatric psychiatric bed #Chronic medical problems -Continue home medications -Dose Coumadin based on INR Diet: Heart healthy DVT prophylaxis: Warfarin CODE STATUS: Full code Problem List: 1. Suicidal ideation 2. Dementia 3. Multifactorial gait disorder 4. Depression Pain Ratin Pain Location: none Pain Goal: Remain pain free Pain Plan: pain pathway Tomorrow's Labs & Rationales: INR and CBC Severo Salazar MD 04/20/17 1242: Attending MD Review Statement Attending Statement Attending MD Statement: examined this patient, discuss w/resident/PA/ROUGH AND TRUEING MACHINE OPERATOR, agreed w/resident/PA/ROUGH AND TRUEING MACHINE OPERATOR, reviewed EMR data (avail) Attending Assessment/Plan: Doing well, no acute events. Will continue current management, follow psychiatry recommendations, pursue meryl-psych placement, DVT PPx
[2017-04-20 06:58] VITALS: BP 136/82
[2017-04-20 08:48] LABS: PT 19.4 SEC (9.4-12.5)
[2017-04-20 09:01] LABS: ABSOLUTE BASOPHIL COUNT 0.1 /CUMM (0.0-0.2); ABSOLUTE EOSINOPHIL COUNT 0.3 /CUMM (0.0-0.7); ABSOLUTE GRANULOCYTE CT 6.3 /CUMM (1.4-6.5); ABSOLUTE LYMPH COUNT 1.2 /CUMM (1.2-3.4); ABSOLUTE MONOCYTE COUNT 0.5 /CUMM (0.10-0.60); BASOPHIL % 0.7 % (0.0-2.0); EOSINOPHIL % 3.6 % (0-5); GRANULOCYTE % 74.9 % (42.2-75.2); HEMATOCRIT 38.4 % (42-52); MEAN CORPUSCULAR HGB 29.3 PG (27.0-31.0); MEAN CORPUSCULAR HGB CONC 33.4 G/DL (33.0-37.0); MEAN CORPUSCULAR VOLUME 87.9 FL (80.0-94.0); MEAN PLATELET VOLUME 6.5 FL (7.4-10.4); PLATELET COUNT 267 /CUMM (130-400); RBC DISTRIBUTION WIDTH 15.5 % (11.5-14.5); RED BLOOD CELL CT 4.37 /CUMM (4.70-6.10); WHITE BLOOD CELL COUNT 8.5 /CUMM (4.8-10.8)
[2017-04-20 14:08] VITALS: BP 110/70
[2017-04-20] MEDS ORDERED: DEPAKOTE SPRIN125 M1 PO (20:41)
[2017-04-20] MEDS ORDERED: ZOLOFT100 M1 PO (20:41)
--- NOTE | 2017-04-20 20:43 | Patient Discharge Instructions ---
Discharge Instructions General Discharge Information You were seen/treated for: Multifocal gait instability Depression Suicidal Ideation Special Instructions: Follow-up with Dr. Travis, Welfare Supervisor, within 2 weeks of dishcarge. We have provided you with a referral. Have INR checked and warfarin dosed appropriately during your stay at [facility]. Acute Coronary Syndrome Inclusion Criteria At DC or during hospital stay patient has or had the following: ACS DIAGNOSIS No Discharge Core Measures Meds if any: Prescribed or Continued at Discharge Meds if any: NOT Prescribed or Continued at Discharge Congestive Heart Failure Inclusion Criteria At DC or during hospital stay patient has or had the following: CHF DIAGNOSIS No Discharge Core Measures Meds if any: Prescribed or Continued at Discharge Meds if any: NOT Prescribed or Continued at Discharge Cerebrovascular accident Inclusion Criteria At CA or during hospital stay patient has or had the following: CVA/TIA Diagnosis No Discharge Core Measures Meds if any: Prescribed or Continued at Discharge Meds if any: NOT Prescribed or Continued at Discharge Venous thromboembolism Inclusion Criteria VTE Diagnosis No VTE Type NONE VTE Confirmed by (Test) NONE Discharge Core Measures - Per Current guidelines, there needs to be overlap - treatment for the first 5 days of Warfarin therapy. - If discharged on Warfarin prior to 5 days of - overlap therapy, the patient will need to be - assessed for post discharge needs including - *Post discharge parental anticoagulation - *Warfarin and/or parental anticoagulation education - *Follow up date to check INR post discharge At least 5 days overlap therapy as Inpatient No Meds if any: Prescribed or Continued at Discharge Note: Overlap Therapy is Warfarin and Anticoagulant Meds if any: NOT Prescribed or Continued at Discharge
[2017-04-20 22:43] VITALS: BP 134/82
[2017-04-21 06:48] VITALS: BP 128/76
--- NOTE | 2017-04-21 07:07 | PN- Housestaff ---
Abdirahman BOBO,Matthias 04/21/17 0707: Subjective Follow-up For: Multifactorial gait disorder Generalized weakness Suicidal ideatoion Subjective: Patient was examined at bedside. He was resting comfortably. He had no acute events overnight. He is reporting pain with urination. He typically continues to report intermittent episodes of depression with suicidal ideation, with a plan to himself down a flight of stairs. He offers no other complaints and despite his reports depression and SI he has a very pleasant demeanor during all of our encounters. Review of Systems Constitutional: Reports: weakness. EENTM: Reports: no symptoms. Cardiovascular: Reports: no symptoms. Respiratory: Reports: no symptoms. Gastrointestinal: Reports: no symptoms. Genitourinary: Reports: discharge. Musculoskeletal: Reports: no symptoms. Skin: Reports: no symptoms. Objective Last 24 Hrs of Vital Signs/I&O Vital Signs Date Time Temp Pulse Resp B/P B/P Pulse O2 O2 Flow FiO2 Mean Ox Delivery Rate 04/21 0648 97.7 62 18 128/76 92 Room Air 04/20 2243 98.1 64 134/82 94 Room Air 04/20 1408 97.7 65 18 110/70 95 04/20 0905 136/82 04/20 0802 Room Air Room Air 04/20 0733 Room Air Room Air Intake & Output 04/21 0800 04/21 0000 04/20 1600 Intake Total 830 400 Output Total 650 300 Balance -650 530 400 Intake, IV 350 400 Intake, Oral 480 Output, Urine 650 300 Physical Exam General Appearance: Alert, Oriented X3, Cooperative, No Acute Distress Skin Temp/Moisture Exam: Warm/Dry Cardiovascular: Regular Rate, Normal S1, Normal S2 Lungs: Clear to Auscultation, Normal Air Movement Abdomen: Normal Bowel Sounds, Soft, No Tenderness Current Medications: Current Medications Sig/Gi Start time Last Medication Dose Route Stop Time Status Admin Divalproex Sodium 125 MG BID 04/19 2199 AC 04/20 PO 2123 Enoxaparin Sodium 30 MG DAILY 04/17 2105 AC 04/20 SC 0906 Gabapentin 300 MG TID 04/17 2199 AC 04/20 PO 2123 Polyethylene Glycol 17 GM AT BEDTIME 04/17 2199 AC 04/20 PO 212 Sertraline HCl 150 MG DAILY 04/19 1600 AC 04/20 PO 09 Sodium Chloride 1,000 ML .Q20H 04/17 2114 AC 04/20 IV 1754 Tamsulosin HCl 0.4 MG DAILY 04/18 1000 AC 04/20 PO 0905 Warfarin Sodium 7.5 MG COUMADIN 1700 ONE 04/20 1700 DC 04/20 PO 04/20 1701 1649 Last 24 Hrs of Lab/Matt Results Last 24 Hrs of Labs/Mics: Laboratory Tests 04/20/17 0750: PT 19.4 H, INR 1.77 H, CBC w Diff NO MAN DIFF REQ, RBC 4.37 L, MCV 87.9, MCH 29.3, MCHC 33.4, RDW 15.5 H, MPV 6.5 L, Gran % 74.9, Lymphocytes % 14.7 L, Monocytes % 6.1, Eosinophils % 3.6, Basophils % 0.7, Absolute Granulocytes 6.3, Absolute Lymphocytes 1.2, Absolute Monocytes 0.5, Absolute Eosinophils 0.3, Absolute Basophils 0.1 Assessment/Plan Assessment: Patient is an 87-year-old male with a PMH significant for trigeminal neuralgia, dementia, DVT on warfarin, BPH, arthritis, anxiety, depression, Zenker's diverticulum who presented complaining of frequent falls at home. He has been experiencing weakness with associated dizziness and falls. He denies any associated symptoms indicative of neuro cardiogenic syncope. #Multifactorial gait disorder with associated weakness MRI showed chronic small vessel ischemic changes. With no acute pathology -Patient is awaiting placement in geriatric psych with -Continue to work with physical therapy #History of depression with suicidal ideations Patient continues to complain of depression with suicidal ideation -Continue sertraline and Depakote -Psychiatry as recommended placement in a geriatric psychiatric bed #Chronic medical problems -Continue home medications -Dose Coumadin based on INR #New-onset dysuria -Follow-up UA and urine culture Diet: Heart healthy DVT prophylaxis: Warfarin CODE STATUS: Full code Problem List: 1. Multifactorial gait disorder 2. Dementia 3. Suicidal ideation 4. Depression Pain Ratin Pain Location: none Pain Goal: Remain pain free Pain Plan: pain pathway Tomorrow's Labs & Rationales: cbc, inr Severo Salazar MD 04/21/17 1351: Attending MD Review Statement Attending Statement Attending MD Statement: examined this patient, discuss w/resident/PA/ELECTRONICS TESTER, agreed w/resident/PA/ELECTRONICS TESTER, reviewed EMR data (avail) Attending Assessment/Plan: Doing well, no acute events. Will continue current management, follow psychiatry recommendations, pursue meryl-psych placement, DVT PPx
[2017-04-21 09:02] LABS: PT 23.2 SEC (9.4-12.5)
[2017-04-21 09:05] LABS: ABSOLUTE BASOPHIL COUNT 0.1 /CUMM (0.0-0.2); ABSOLUTE EOSINOPHIL COUNT 0.3 /CUMM (0.0-0.7); ABSOLUTE GRANULOCYTE CT 5.3 /CUMM (1.4-6.5); ABSOLUTE LYMPH COUNT 1.3 /CUMM (1.2-3.4); ABSOLUTE MONOCYTE COUNT 0.5 /CUMM (0.10-0.60); EOSINOPHIL % 3.6 % (0-5); HEMATOCRIT 40.8 % (42-52); MEAN CORPUSCULAR HGB 29.1 PG (27.0-31.0); MEAN CORPUSCULAR HGB CONC 33.1 G/DL (33.0-37.0); MEAN CORPUSCULAR VOLUME 87.9 FL (80.0-94.0); MEAN PLATELET VOLUME 6.6 FL (7.4-10.4); PLATELET COUNT 272 /CUMM (130-400); RBC DISTRIBUTION WIDTH 15.4 % (11.5-14.5); RED BLOOD CELL CT 4.64 /CUMM (4.70-6.10); WHITE BLOOD CELL COUNT 7.5 /CUMM (4.8-10.8)
[2017-04-21 13:34] VITALS: BP 120/70
[2017-04-21 22:40] VITALS: BP 102/56
[2017-04-22 07:00] VITALS: BP 142/72
--- NOTE | 2017-04-22 07:22 | PN- Housestaff ---
Abdirahman BOBO,Matthias 04/22/17 0722: Subjective Follow-up For: Multifactorial gait disorder Generalized weakness Suicidal ideatoion L metatarsal fracture Subjective: Patient was seen and examined at bedside. He was resting comfortably. He had no acute events overnight. He is complaining of worsening pain and swelling in his left foot that is limiting his ability to walk. He continues to complain of episodes of depression and suicidal ideation. He has no other new complaints , and is no longer having dysuria. Review of Systems Constitutional: Reports: no symptoms. Objective Last 24 Hrs of Vital Signs/I&O Vital Signs Date Time Temp Pulse Resp B/P B/P Pulse O2 O2 Flow FiO2 Mean Ox Delivery Rate 04/22 0700 98.0 66 18 142/72 94 Room Air 04/21 2240 97.8 68 20 102/56 92 Room Air 04/21 1736 Room Air Room Air 04/21 1334 98.0 78 20 120/70 93 04/21 0752 128/76 Intake & Output 04/22 0800 04/22 0000 04/21 1600 Intake Total 830 850 Output Total 500 300 Balance -500 530 850 Intake, IV 350 400 Intake, Oral 480 450 Output, Urine 500 300 Physical Exam General Appearance: Alert, Cooperative, No Acute Distress Skin Temp/Moisture Exam: Warm/Dry Sepsis Skin Exam (color): Normal for Ethnicity Cardiovascular: Regular Rate, Normal S1, Normal S2 Lungs: Clear to Auscultation, Normal Air Movement Abdomen: Normal Bowel Sounds, Soft, No Tenderness Neurological: Normal Speech, Normal Tone, Sensation Intact Extremities: mild swelling and tenderness of the dorsal L foot Current Medications: Current Medications Sig/Gi Start time Last Medication Dose Route Stop Time Status Admin Acetaminophen 650 MG ONCE ONE 04/21 1100 DC 04/21 PO 04/21 1101 1051 Divalproex Sodium 125 MG BID 04/19 2199 AC 04/21 PO 2114 Enoxaparin Sodium 30 MG DAILY 04/17 2105 AC 04/21 SC 0752 Gabapentin 300 MG TID 04/17 2199 AC 04/21 PO 2113 Polyethylene Glycol 17 GM AT BEDTIME 04/17 2199 AC 04/21 PO 2113 Sertraline HCl 150 MG DAILY 04/19 1600 AC 04/21 PO 075 Sodium Chloride 1,000 ML .Q20H 04/17 2114 AC 04/22 IV 0620 Tamsulosin HCl 0.4 MG DAILY 04/18 1000 AC 04/21 PO 0752 Warfarin Sodium 6 MG COUMADIN 1700 04/21 1700 DC 04/21 PO 04/21 2359 1620 Last 24 Hrs of Lab/Matt Results Last 24 Hrs of Labs/Mics: Laboratory Tests 04/21/17 1505: Urine Color YEL, Urine Clarity CLEAR, Urine pH 6.0, Ur Specific [place] 1.015, Urine Protein NEG, Urine Ketones NEG, Urine Nitrite NEG, Urine Bilirubin NEG, Urine Urobilinogen 1.0, Ur Leukocyte Esterase NEG, Ur Microscopic SEDIMENT EXAMINED, Urine RBC 3-5, Urine WBC 1-3 H, Ur Epithelial Cells RARE, Urine Bacteria RARE H, Hyaline Casts 1-3 H, Urine Mucus MOD H, Urine Hemoglobin MOD H, Urine Glucose NEG 04/21/17 0801: PT 23.2 H, INR 2.11 H, CBC w Diff NO MAN DIFF REQ, RBC 4.64 L, MCV 87.9, MCH 29.1, MCHC 33.1, RDW 15.4 H, MPV 6.6 L, Gran % 71.0, Lymphocytes % 18.0 L, Monocytes % 6.4, Eosinophils % 3.6, Basophils % 1.0, Absolute Granulocytes 5.3, Absolute Lymphocytes 1.3, Absolute Monocytes 0.5, Absolute Eosinophils 0.3, Absolute Basophils 0.1 Microbiology 04/21 1505 URINE ROUT: Urine Culture - RECD Orders Radiology Findings: Mild dorsal soft tissue swelling is seen. There is a nondisplaced hairline transverse fracture at the base of the fifth metatarsal bone. No other fracture or dislocation is seen. There is is osteopenia and mild degenerative changes are noted in the intertarsal joints and at the first metatarsophalangeal joint and the first interphalangeal joint. No radiopaque foreign body is seen in the soft tissues. No ankle joint effusion is seen. IMPRESSION: 1. Hairline nondisplaced fracture of the base of the fifth metatarsal bone. 2. Osteopenia. Assessment/Plan Assessment: Patient is an 87-year-old male with a PMH significant for trigeminal neuralgia, dementia, DVT on warfarin, BPH, arthritis, anxiety, depression, Zenker's diverticulum who presented complaining of frequent falls at home. He has been experiencing weakness with associated dizziness and falls. He denies any associated symptoms indicative of neuro cardiogenic syncope. #Multifactorial gait disorder with associated weakness MRI showed chronic small vessel ischemic changes. With no acute pathology -Patient is awaiting placement in geriatric psych bed -Continue to work with physical therapy #Fracture of the R 5th metatarsal Patient was complaining of L foot pain and swelling yesterday and was given cheyenne packs and recommended elevation. with little improvement today he was sent for XRay wich showed nondisplaced fx of the 5th metatarsal. -podiatry consult placed, will follow recommendations -continue ice and elevation #History of depression with suicidal ideations Patient continues to complain of depression with suicidal ideation -Continue sertraline and Depakote -Psychiatry as recommended placement in a geriatric psychiatric bed #Chronic medical problems -Continue home medications -Dose Coumadin based on INR #New-onset dysuria, resolved -Follow-up urine culture Diet: Heart healthy DVT prophylaxis: Warfarin CODE STATUS: Full code Problem List: 1. Suicidal ideation 2. Dementia 3. Multifactorial gait disorder 4. Metatarsal fracture Pain Ratin Pain Location: L dorsal foot Pain Goal: Remain pain free Pain Plan: pain pathway Tomorrow's Labs & Rationales: cbc, inr Severo Salazar MD 04/22/17 1100: Attending MD Review Statement Attending Statement Attending MD Statement: examined this patient, discuss w/resident/PA/PREFABRICATOR, agreed w/resident/PA/PREFABRICATOR, reviewed EMR data (avail) Attending Assessment/Plan: 87M PMH trigeminal neuralgia, dementia, DVT on Coumadin, BPH, anxiety, depression, Zenker's diverticulum admitted for recurrent falls with negative MRI head and lab findings, expressing depression and suicidal thoughts, with generalized weakness, deconditioning, and unsteady gait. Patient walked with PT yesterday, now has pain and tenderness to the lateral aspect of his left foot. He is otherwise well and has no complaints. 1. Unsteady gait 2. Deconditioning 3. Generalized weakness 4. Suicidal ideation Plan - Continue on general medicine - X-ray of left foot - Follow psychiatry recommendations - Continue home medications - Continue to work with PT - DVT PPx - Awaiting meryl-psychiatry placement
[2017-04-22 09:33] LABS: PT 31.1 SEC (9.4-12.5)
--- NOTE | 2017-04-22 14:10 | RADIOLOGY REPORT ---
EXAMINATION: XR FOOT, LEFT CLINICAL INFORMATION: Swelling and tenderness of dorsal and lateral left foot and swelling and tenderness of the distal leg/ankle. Rule out fracture. Patient presented with falls and has unsteady gait. COMPARISON: None TECHNIQUE: AP, lateral, and oblique views of the left foot. FINDINGS: Mild dorsal soft tissue swelling is seen. There is a nondisplaced hairline transverse fracture at the base of the fifth metatarsal bone. No other fracture or dislocation is seen. There is is osteopenia and mild degenerative changes are noted in the intertarsal joints and at the first metatarsophalangeal joint and the first interphalangeal joint. No radiopaque foreign body is seen in the soft tissues. No ankle joint effusion is seen. IMPRESSION: 1. Hairline nondisplaced fracture of the base of the fifth metatarsal bone. 2. Osteopenia.
[2017-04-22 14:52] VITALS: BP 122/70
--- NOTE | 2017-04-22 16:38 | Cons- Podiatry ---
General Information and HPI Consulting Request Date of Consult: 04/22/17 Requested By: Severo Salazar MD History of Present Illness: Mr. De Leon is an 87-year-old male with a history of unsteady gait associated with multiple underlying etiologies. The patient was admitted after a recent exacerbation of his gait issues, precipitating multiple recent falls. The patient was noted on admission to have a painful left foot with x-ray findings demonstrating a nondisplaced avulsion fracture at the base of the left fifth metatarsal. Allergies/Medications Allergies: Coded Allergies: Penicillins (UNKNOWN 12/29/16) morphine (UNKNOWN 12/29/16) Home Med List: Divalproex Sodium (Depakote Sprinkle) 125 MG CAP.SPRINK 125 MG PO BID Depression Gabapentin 300 MG CAPSULE 1 CAP PO TID NEURALGIA (Reported) Sertraline HCl (Zoloft) 100 MG TABLET 150 MG PO DAILY Depression Tamsulosin HCl 0.4 MG CAP.ER.24H 1 CAP PO DAILY BPH (Reported) Warfarin Sodium 4 MG TABLET 1 TAB PO DAILY HEART HEALTH (Reported) Past History Medical History Neurological: dementia EENT: cataracts Cardiovascular: DVT Respiratory: NONE Gastrointestinal: DIVERTICUM OF ESOPHAGUS ZERIKER DIVERTICULUM Hepatic: NONE Renal: benign prost hyperplasia Musculoskeletal: degen joint disease, ARTHRITIS Psychiatric: anxiety, MAJOR DEPRESSIVE D/O Endocrine: NONE Blood Disorders: NONE Cancer(s): NONE HOME ENERGY RATER/Reproductive: NONE Surgical History Pertinent Surgical History: non-contributory Family History Relations & Conditions If Any: MOTHER FH: breast cancer FATHER FH: muscular dystrophy Psychosocial History Services at Home: None Smoking Status: Never Smoked ETOH Use: denies use Illicit Drug Use: denies illicit drug use Review of Systems Review of Systems: Unremarkable except for that noted in history present illness Exam & Diagnostic Data Vital Signs and I&O Vital Signs Date Time Temp Pulse Resp B/P B/P Pulse O2 O2 Flow FiO2 Mean Ox Delivery Rate 04/22 1452 97.7 71 18 122/70 94 Room Air 04/22 0924 68 20 132/78 04/22 0700 98.0 66 18 142/72 94 Room Air 04/21 2240 97.8 68 20 102/56 92 Room Air 04/21 1736 Room Air Room Air Intake & Output 04/22 1600 04/22 0800 04/22 0000 04/21 1600 04/21 0800 04/21 0000 Intake Total 880 860 830 850 760 830 Output Total 500 500 300 650 300 Balance 380 360 530 850 110 530 Intake, IV 400 400 350 400 400 350 Intake, Oral 480 460 480 450 360 480 Output, Urine 500 500 300 650 300 Patient 169 lb Weight Physical Exam: Lower extremity neurovascular exam unremarkable. Patient noted to have pain with palpation at the base of the left fifth metatarsal. No ecchymosis identified. A small area of erythema is noted about the region. No open lesions identified. Assessment/Plan Assessment/Plan Nondisplaced avulsion fracture of the base of the fifth metatarsal left. Recommend dispensing a surgical shoe and may ambulate as tolerated with a gait assistive device under the supervision of physical therapy. Patient may follow- up as an outpatient for evaluation and treatment. Consult Acknowledgment - Thank you for your consult request. Attending MD Review Statement Attending Statement Attending MD Statement: examined this patient
[2017-04-22 22:30] VITALS: BP 120/66
[2017-04-23 06:48] VITALS: BP 120/68
--- NOTE | 2017-04-23 07:07 | PN- Housestaff ---
Abdirahman BOBO,Matthias 04/23/17 0707: Subjective Follow-up For: L 5th metatarsal fracture Suicidal ideatoion Subjective: Patient was seen and examined at bedside. He was resting comfortably. He had no acute events overnight. He continues to complain of mild pain of the left foot with ambulation. Also continues to have suicidal ideations and issues with depressed mood. He has no new complaints. Review of Systems Constitutional: Reports: no symptoms. EENTM: Reports: no symptoms. Cardiovascular: Reports: no symptoms. Respiratory: Reports: no symptoms. Gastrointestinal: Reports: no symptoms. Genitourinary: Reports: no symptoms. Musculoskeletal: Reports: see HPI, joint pain (L foot), joint swelling. Objective Last 24 Hrs of Vital Signs/I&O Vital Signs Date Time Temp Pulse Resp B/P B/P Pulse O2 O2 Flow FiO2 Mean Ox Delivery Rate 04/23 0648 98.1 60 16 120/68 93 Room Air 04/22 2230 98.0 66 18 120/66 98 Room Air 04/22 1452 97.7 71 18 122/70 94 Room Air 04/22 0924 68 20 132/78 Intake & Output 04/23 0800 04/23 0000 04/22 1600 Intake Total 700 880 Output Total 500 200 500 Balance -500 500 380 Intake, IV 400 400 Intake, Oral 300 480 Output, Urine 500 200 500 Patient 169 lb Weight Physical Exam General Appearance: Alert, Cooperative, No Acute Distress Skin Temp/Moisture Exam: Warm/Dry Cardiovascular: Regular Rate, Normal S1, Normal S2 Lungs: Clear to Auscultation, Normal Air Movement Abdomen: Normal Bowel Sounds, Soft, No Tenderness Neurological: Normal Speech, Normal Tone, Sensation Intact Extremities: L foot swelling, improved from yesterday with TTP on the doral and lateral aspect of the foot Current Medications: Current Medications Sig/Gi Start time Last Medication Dose Route Stop Time Status Admin Divalproex Sodium 125 MG BID 04/19 2199 AC 04/22 PO 2106 Enoxaparin Sodium 30 MG DAILY 04/17 2105 AC 04/22 SC 0920 Gabapentin 300 MG TID 04/17 2199 AC 04/22 PO 2106 Polyethylene Glycol 17 GM AT BEDTIME 04/17 2199 AC 04/22 PO 2106 Sertraline HCl 150 MG DAILY 04/19 1600 AC 04/22 PO 09 Sodium Chloride 1,000 ML .Q20H 04/17 2115 AC 04/22 IV 2107 Tamsulosin HCl 0.4 MG DAILY 04/18 1000 AC 04/22 PO 0924 Warfarin Sodium 4 MG COUMADIN 1700 ONE 04/22 1700 DC 04/22 PO 04/22 1701 1642 Last 24 Hrs of Lab/Matt Results Last 24 Hrs of Labs/Mics: Laboratory Tests 04/22/17 0827: PT 31.1 H, INR 2.82 H Assessment/Plan Assessment: Patient is an 87-year-old male with a PMH significant for trigeminal neuralgia, dementia, DVT on warfarin, BPH, arthritis, anxiety, depression, Zenker's diverticulum who presented complaining of frequent falls at home. He has been experiencing weakness with associated dizziness and falls. He denies any associated symptoms indicative of neuro cardiogenic syncope. #Multifactorial gait disorder with associated weakness MRI showed chronic small vessel ischemic changes with no acute pathology -Patient is awaiting placement in geriatric psych bed -Continue to work with physical therapy #Fracture of the R 5th metatarsal Patient was complaining of L foot pain and swelling yesterday and was given cheyenne packs and recommended elevation. with little improvement today he was sent for XRay wich showed nondisplaced fx of the 5th metatarsal. -surgical boot to L foot, and ambulation as tolerated -continue ice and elevation -outpatient follow up with podiatry #History of depression with suicidal ideations Patient continues to complain of depression with suicidal ideation -Continue sertraline and Depakote -Psychiatry as recommended placement in a geriatric psychiatric bed -Currently awaiting placement #Chronic medical problems -Continue home medications -Dose Coumadin based on INR #New-onset dysuria, resolved -Follow-up urine culture, no growth currently Diet: Heart healthy DVT prophylaxis: Warfarin CODE STATUS: Full code Problem List: 1. Metatarsal fracture 2. Suicidal ideation 3. Dementia 4. Depression Pain Ratin Pain Location: L foot Pain Goal: Pain 4 or less Pain Plan: pain pathway Tomorrow's Labs & Rationales: inr Severo Salazar MD 04/23/17 1051: Attending MD Review Statement Attending Statement Attending MD Statement: examined this patient, discuss w/resident/PA/MOTOR OVERHAULER, agreed w/resident/PA/MOTOR OVERHAULER, reviewed EMR data (avail) Attending Assessment/Plan: 87M PMH trigeminal neuralgia, dementia, DVT on Coumadin, BPH, anxiety, depression, Zenker's diverticulum admitted for recurrent falls with negative MRI head and lab findings, expressing depression and suicidal thoughts, with generalized weakness, deconditioning, and unsteady gait. Patient walked with PT yesterday, now has pain and tenderness to the lateral aspect of his left foot. He is otherwise well and has no complaints. X-ray shows fifth metatarsal hairline non-displaced fracture on the left. 1. Unsteady gait 2. Deconditioning 3. Generalized weakness 4. Suicidal ideation 5. Left closed non-displaced fifth metatarsal fracture Plan - Continue on general medicine - Follow podiatry recommendations for boot - Follow psychiatry recommendations - Continue home medications - Continue to work with PT - DVT PPx - Awaiting [facility] placement
[2017-04-23 09:31] LABS: ABSOLUTE BASOPHIL COUNT 0 /CUMM (0.0-0.2); ABSOLUTE EOSINOPHIL COUNT 0.3 /CUMM (0.0-0.7); ABSOLUTE GRANULOCYTE CT 5.4 /CUMM (1.4-6.5); ABSOLUTE LYMPH COUNT 1.3 /CUMM (1.2-3.4); ABSOLUTE MONOCYTE COUNT 0.4 /CUMM (0.10-0.60); BASOPHIL % 0.5 % (0.0-2.0); GRANULOCYTE % 72.9 % (42.2-75.2); HEMATOCRIT 44.1 % (42-52); MEAN CORPUSCULAR HGB 28.8 PG (27.0-31.0); MEAN CORPUSCULAR HGB CONC 32.6 G/DL (33.0-37.0); MEAN CORPUSCULAR VOLUME 88.4 FL (80.0-94.0); MEAN PLATELET VOLUME 6.7 FL (7.4-10.4); PLATELET COUNT 279 /CUMM (130-400); RBC DISTRIBUTION WIDTH 15.6 % (11.5-14.5); RED BLOOD CELL CT 4.99 /CUMM (4.70-6.10); WHITE BLOOD CELL COUNT 7.4 /CUMM (4.8-10.8)
[2017-04-23 15:06] VITALS: BP 132/68
[2017-04-23 22:11] VITALS: BP 121/67
[2017-04-24 07:23] VITALS: BP 108/70
--- NOTE | 2017-04-24 10:15 | PN- Att Addend ---
Attending Addendum Attending Brief Note Pt was seen, reports that he has dementia and unable to remember Vital Signs Date Time Temp Pulse Resp B/P B/P Pulse O2 O2 Flow FiO2 Mean Ox Delivery Rate 04/24 0846 108/70 04/24 0723 98.2 59 20 108/70 92 Room Air 04/23 2211 98.5 69 18 121/67 92 Room Air 04/23 1506 98.3 70 14 132/68 93 04/23 1118 Room Air Room Air Intake & Output 04/24 1600 04/24 0800 04/24 0000 Intake Total 50 480 Output Total 600 600 Balance -550 -120 Intake, Oral 50 480 Output, Urine 600 600 GEN: able to converse, alert HEENT: moist mucosa LUNGS: CTAB HEART: s1s2 ABD: soft, NT EXT: limited ROM due to left toe fx Labs/Diagnostics: Laboratory Tests 04/24/17 0743: PT 30.0 H, INR 2.72 H A/P: Briefly, Mr. Villa is an 87-year-old male withPMHx of: trigeminal neuralgia, dementia, DVT on warfarin, BPH, arthritis, anxiety, depression, Zenker's diverticulum c/o frequent falls at home. He has been experiencing weakness with associated dizziness and falls. Found to have nondisplaced fx of the 5th metatarsal. -- Awaiting [facility] eval -- Surgical boot to L foot, and ambulation as tolerated --continue ice and elevation --outpatient follow up with podiatry
[2017-04-24 14:52] VITALS: BP 110/70
[2017-04-24 22:16] VITALS: BP 111/65
[2017-04-25 06:23] VITALS: BP 122/70
--- NOTE | 2017-04-25 08:40 | PN- Housestaff ---
Abdirahman BOBO,Matthias 04/25/17 0840: Subjective Follow-up For: L 5th metatarsal fracture Suicidal ideatoion Subjective: Patient was seen and examined at bedside. He is resting comfortably. He had no acute events overnight. He has had no improvement in his episodes of depressed mood or recurrent thoughts of suicide. His left foot pain is improving. He has no new complaints. Review of Systems Constitutional: Reports: no symptoms. EENTM: Reports: no symptoms. Cardiovascular: Reports: no symptoms. Respiratory: Reports: no symptoms. Gastrointestinal: Reports: no symptoms. Genitourinary: Reports: no symptoms. Musculoskeletal: Reports: see HPI. Neurological/Psychological: Reports: depressed. Objective Last 24 Hrs of Vital Signs/I&O Vital Signs Date Time Temp Pulse Resp B/P B/P Pulse O2 O2 Flow FiO2 Mean Ox Delivery Rate 04/25 0623 97.5 64 20 122/70 91 Room Air 04/24 2216 98.7 72 18 111/65 93 Room Air 04/24 1452 98.6 76 20 110/70 94 04/24 0846 108/70 Intake & Output 04/25 1600 04/25 0800 04/25 0000 Intake Total 360 240 Output Total 450 Balance 360 -210 Intake, Oral 360 240 Output, Urine 450 Physical Exam General Appearance: Alert, Cooperative, No Acute Distress Skin Temp/Moisture Exam: Warm/Dry Cardiovascular: Regular Rate, Normal S1, Normal S2 Lungs: Clear to Auscultation, Normal Air Movement Abdomen: Normal Bowel Sounds, Soft, No Tenderness Neurological: Normal Speech, Normal Tone, Sensation Intact Extremities: L foot with improved swelling and mild tenderness on the L lateral aspect Current Medications: Current Medications Sig/Gi Start time Last Medication Dose Route Stop Time Status Admin Cholecalciferol 1,000 IU DAILY 04/23 1000 AC 04/24 PO 0846 Divalproex Sodium 125 MG BID 04/19 2199 AC 04/24 PO 2056 Enoxaparin Sodium 30 MG DAILY 04/17 2105 AC 04/24 SC 0846 Gabapentin 300 MG TID 04/17 2199 AC 04/24 PO 2056 Polyethylene Glycol 17 GM AT BEDTIME 04/17 2199 AC 04/24 PO 2054 Sertraline HCl 150 MG DAILY 04/19 1600 AC 04/24 PO 08 Tamsulosin HCl 0.4 MG DAILY 04/18 1000 AC 04/24 PO 08 Warfarin Sodium 3 MG COUMADIN 1700 ONE 04/24 1700 DC 04/24 PO 04/24 1701 1636 Warfarin Sodium 3 MG .STK-MED ONE 04/24 1632 DC PO 04/24 1633 Last 24 Hrs of Lab/Matt Results Last 24 Hrs of Labs/Mics: Laboratory Tests 04/25/17 0820: PT Pending, INR Pending, CBC w Diff Pending, WBC Pending, RBC Pending, Hgb Pending, Hct Pending, MCV Pending, MCH Pending, MCHC Pending, RDW Pending, Plt Count Pending, MPV Pending Assessment/Plan Assessment: Patient is an 87-year-old male with a PMH significant for trigeminal neuralgia, dementia, DVT on warfarin, BPH, arthritis, anxiety, depression, Zenker's diverticulum who presented complaining of frequent falls at home. He has been experiencing weakness with associated dizziness and falls. He denies any associated symptoms indicative of neuro cardiogenic syncope. #Multifactorial gait disorder with associated weakness MRI showed chronic small vessel ischemic changes with no acute pathology -Patient is awaiting placement in geriatric psych bed -Continue to work with physical therapy #Fracture of the R 5th metatarsal Patient swelling and tenderness is improving. -Continue to work with physical therapy, may ambulate as tolerated with surgical boot -continue ice and elevation -outpatient follow up with podiatry #History of depression with suicidal ideations Patient continues to complain of depression with suicidal ideation -Continue sertraline and Depakote -Psychiatry as recommended placement in a geriatric psychiatric bed -Currently awaiting placement #Chronic medical problems -Continue home medications -Dose Coumadin based on INR Diet: Heart healthy DVT prophylaxis: Warfarin CODE STATUS: Full code Problem List: 1. Metatarsal fracture 2. Suicidal ideation 3. Dementia Pain Ratin Pain Location: L foot Pain Goal: Remain pain free Pain Plan: pain pathway Tomorrow's Labs & Rationales: inr Lizzette BOBO,Amir 04/25/17 1056: Attending MD Review Statement Attending Statement Attending Statement: examined this patient, discuss w/resident/PA/DRIER UNLOADER, agreed w/resident/PA/DRIER UNLOADER, reviewed EMR data (avail), discussed with nursing Attending Assessment/Plan: f/u Pysch recs. INR therapeutic range. Awaiting placement
[2017-04-25 09:23] LABS: ABSOLUTE BASOPHIL COUNT 0.1 /CUMM (0.0-0.2); ABSOLUTE EOSINOPHIL COUNT 0.4 /CUMM (0.0-0.7); ABSOLUTE GRANULOCYTE CT 5.3 /CUMM (1.4-6.5); ABSOLUTE LYMPH COUNT 1.6 /CUMM (1.2-3.4); ABSOLUTE MONOCYTE COUNT 0.7 /CUMM (0.10-0.60); BASOPHIL % 0.8 % (0.0-2.0); EOSINOPHIL % 4.7 % (0-5); GRANULOCYTE % 66.7 % (42.2-75.2); HEMATOCRIT 41.1 % (42-52); MEAN CORPUSCULAR HGB CONC 33.2 G/DL (33.0-37.0); MEAN CORPUSCULAR VOLUME 87.4 FL (80.0-94.0); MEAN PLATELET VOLUME 6.7 FL (7.4-10.4); PLATELET COUNT 270 /CUMM (130-400); RBC DISTRIBUTION WIDTH 15.9 % (11.5-14.5); RED BLOOD CELL CT 4.71 /CUMM (4.70-6.10); WHITE BLOOD CELL COUNT 7.9 /CUMM (4.8-10.8)
[2017-04-25 15:00] VITALS: BP 110/72
[2017-04-25 22:22] VITALS: BP 100/60
[2017-04-26 06:34] VITALS: BP 114/68
--- NOTE | 2017-04-26 07:42 | PN- Housestaff ---
Abdirahman BOBO,Matthias 04/26/17 0741: Subjective Follow-up For: SI L 5th metatarsal fx Subjective: Patient was seen and examined at bedside. He is resting comfortably. He had no acute events overnight. He continues to report depressed mood, describing it as feeling like nothing is real. He has been working with physical therapy and has been tolerating this well, he reports improvement in his left foot pain. Review of Systems Constitutional: Reports: no symptoms. EENTM: Reports: no symptoms. Cardiovascular: Reports: no symptoms. Respiratory: Reports: no symptoms. Gastrointestinal: Reports: no symptoms. Genitourinary: Reports: no symptoms. Musculoskeletal: Reports: see HPI. Neurological/Psychological: Reports: depressed. Objective Last 24 Hrs of Vital Signs/I&O Vital Signs Date Time Temp Pulse Resp B/P B/P Pulse O2 O2 Flow FiO2 Mean Ox Delivery Rate 04/26 0634 98.4 65 18 114/68 92 Room Air 04/25 2222 98.7 79 18 100/60 92 Room Air 04/25 1500 98.5 72 18 110/72 98 04/25 0926 122/70 Intake & Output 04/26 0800 04/26 0000 04/25 1600 Intake Total 800 700 Output Total 300 250 200 Balance -300 550 500 Intake, Oral 800 700 Number 2 1 Bowel Movements Output, Urine 300 250 200 Physical Exam General Appearance: Alert, Oriented X3, Cooperative, No Acute Distress Skin Temp/Moisture Exam: Warm/Dry Sepsis Skin Exam (color): Normal for Ethnicity Cardiovascular: Regular Rate, Normal S1, Normal S2 Lungs: Clear to Auscultation, Normal Air Movement Abdomen: Normal Bowel Sounds, Soft, No Tenderness Neurological: Normal Speech, Normal Tone, Sensation Intact Extremities: No Clubbing, No Cyanosis, No Edema, minimal swelling of the L foot, mild TTP on the L lateral aspect of the foot Current Medications: Current Medications Sig/Gi Start time Last Medication Dose Route Stop Time Status Admin Cholecalciferol 1,000 IU DAILY 04/23 1000 AC 04/25 PO 925 Divalproex Sodium 125 MG BID 04/19 2199 AC 04/25 PO 2023 Enoxaparin Sodium 30 MG DAILY 04/17 2105 AC 04/25 SC 926 Gabapentin 300 MG TID 04/17 2199 AC 04/25 PO 2023 Polyethylene Glycol 17 GM AT BEDTIME 04/17 2199 AC 04/24 PO 2054 Sertraline HCl 150 MG DAILY 04/26 1000 AC PO Sertraline HCl 150 MG DAILY 04/19 1600 DC 04/25 PO 925 Tamsulosin HCl 0.4 MG DAILY 04/18 1000 AC 04/25 PO 925 Warfarin Sodium 3 MG COUMADIN 1700 ONE 04/25 1700 DC 04/25 PO 04/25 1701 1600 Last 24 Hrs of Lab/Matt Results Last 24 Hrs of Labs/Mics: Laboratory Tests 04/25/17 0820: PT 28.0 H, INR 2.54 H, CBC w Diff NO MAN DIFF REQ, RBC 4.71, MCV 87.4, MCH 29.0, MCHC 33.2, RDW 15.9 H, MPV 6.7 L, Gran % 66.7, Lymphocytes % 19.6 L, Monocytes % 8.2, Eosinophils % 4.7, Basophils % 0.8, Absolute Granulocytes 5.3, Absolute Lymphocytes 1.6, Absolute Monocytes 0.7 H, Absolute Eosinophils 0.4, Absolute Basophils 0.1 Assessment/Plan Assessment: Patient is an 87-year-old male with a PMH significant for trigeminal neuralgia, dementia, DVT on warfarin, BPH, arthritis, anxiety, depression, Zenker's diverticulum who presented complaining of frequent falls at home. He has been experiencing weakness with associated dizziness and falls. He denied any associated symptoms indicative of neuro cardiogenic syncope. #Multifactorial gait disorder with associated weakness MRI showed chronic small vessel ischemic changes with no acute pathology -Patient is awaiting placement in geriatric psych bed -Continue to work with physical therapy #Fracture of the R 5th metatarsal Patient swelling and tenderness is improving. -Continue to work with physical therapy, may ambulate as tolerated with surgical boot -continue ice and elevation -outpatient follow up with podiatry #History of depression with suicidal ideations Patient continues to complain of depression with suicidal ideation -Continue sertraline and Depakote -Psychiatry to see and reassess the patient today for continuing need for 1 to 1 continuous observation -Currently awaiting placement #Chronic medical problems -Continue home medications -Dose Coumadin based on INR Diet: Heart healthy DVT prophylaxis: Warfarin CODE STATUS: Full code Problem List: 1. Metatarsal fracture 2. Suicidal ideation 3. Dementia 4. Depression Pain Ratin Pain Location: L foot pain well controlled Pain Goal: Remain pain free Pain Plan: pain pathway Tomorrow's Labs & Rationales: inr, bep Severo Salazar MD 04/26/17 1403: Attending MD Review Statement Attending Statement Attending MD Statement: examined this patient, discuss w/resident/PA/ENGRAVER AUTOMATIC, agreed w/resident/PA/ENGRAVER AUTOMATIC, reviewed EMR data (avail) Attending Assessment/Plan: Awaiting [facility] bed, continue current management
[2017-04-26 08:44] LABS: PT 28.4 SEC (9.4-12.5)
[2017-04-26 14:37] VITALS: BP 108/68
--- NOTE | 2017-04-26 16:13 | Event Note ---
Event Note Event Note: Per discussion with psychiatrist, Dr. Gris Moreno, will attempt a trial of discontinuing one-to-one sitter. Patient is still depressed, however he has made no attempts at harming himself and although he expressed suicidal ideation at the beginning of this hospital stay, he has not been expressed a plan to hurt himself recently. The nurse has been informed to keep a close eye on the patient. We will continue to assess his need for a one-to-one sitter.
--- NOTE | 2017-04-26 16:22 | PN- Psychiatry ---
Assessment/Plan Impression: Pt seen and examined chart, labs reviewed. Pt is an 87 y/o M previously seen by handbook writer for depression with Si and a plan to throw himself down stairs (being anticoagulated). Pt has persisted in his suicidality and depressive symptoms are unabated. Spoke with patient regarding his dispo. He is amenable to inpatient [facility] to treat his mood but is preoccupied by finances. States he "would rather than leave his broke, knows he is at the end of his life." Redirected him concerning his 's wishes, that she was tearful upon finding out he wanted to . Psychoed given regarding his thought process being untrustworthy 2/2 to depression. "That could be, dear." Pt states he would get much worse if most of their money was used to send him to psych. He states he has not thought of killing himself of late but mentions "you know I have dementia so it is hard to say." His short term memory is impaired so interview is limited. MSE: Elderly gentleman in bed in [facility]. Pleasant on exam. Speech clear. Moderate memory impairment. Psychomotor slowing. Depressive cognitions. Spirits are low. Affect constricted. TP: linear, repeats himself at times. TC finances; depressive outlook SI diminished from last interview but still present I/J impaired by dementia and depression Current Medications Sig/Gi Start time Last Medication Dose Route Stop Time Status Admin Cholecalciferol 1,000 IU DAILY 04/23 1000 AC 04/26 PO 09 Divalproex Sodium 125 MG BID 04/19 2199 AC 04/26 PO 09 Enoxaparin Sodium 30 MG DAILY 04/17 210 AC 04/26 SC 0902 Gabapentin 300 MG TID 04/17 2199 AC 04/26 PO 0902 Patient Medication 1 ED ONE ONE 04/26 1530 DC Teaching ED 04/26 1531 Polyethylene Glycol 17 GM AT BEDTIME 04/17 2199 AC 04/24 PO 2054 Sertraline HCl 150 MG DAILY 04/26 1000 AC 04/26 PO 0901 Tamsulosin HCl 0.4 MG DAILY 04/18 1000 AC 04/26 PO 0902 Warfarin Sodium 3 MG COUMADIN 1700 ONE 04/26 1700 AC PO 04/26 1701 Warfarin Sodium 3 MG COUMADIN 1700 ONE 04/25 1700 DC 04/25 PO 04/25 1701 1600 A/ 87 y/o M with PPHx dementia and depression who has had persisting depressive sx and suicidal ideation. SI seems somewhat diminished but unresolved. (Chart review reveals he was seen by psych consult and has had SI with same plan in 2014.) Discussion with reveals he has never been this bad. -Given unrelenting depression would still dispo to [facility]. Pts this age often conceal depression, don't complain about how badly they feel and otherwise manifest depression differently than non-[facility] patients. He is at risk given his age, dementia, ongoing depression, voiced SI w/ plan to fall and anti- coagulation. He is not thinking clearly about his 's wishes for him and is hopeless about the future. -Trial without 1:1; spoke with nursing who will watch him closely. Medicine in agreement. He has not made any attempts to self-harm or had any outbursts. Has not attempted to get out of bed. -Monitor INR re: sertraline/warfarin -Called who did not answer. Suggest having her reiterate to pt her wishes for pt's wellness given he thinks she would be better off without him. -Highly anxious about financial situation and another admit. Would trauma counsellor and provide reassurance, involving . Thank you for this consult. Gris Moreno MD #[phone] Suggestion: see impression Subjective Subjective: see impression Objective Last 24 Hrs of Vital Signs/I&O Vital Signs Date Time Temp Pulse Resp B/P B/P Pulse O2 O2 Flow FiO2 Mean Ox Delivery Rate 04/26 1437 98.0 73 20 108/68 93 04/26 0634 98.4 65 18 114/68 92 Room Air 04/25 2222 98.7 79 18 100/60 92 Room Air Intake & Output 04/26 1600 04/26 0800 04/26 0000 Intake Total 800 0 800 Output Total 300 250 Balance 800 -300 550 Intake, IV 0 Intake, Oral 800 0 800 Number 2 1 Bowel Movements Output, Urine 300 250
[2017-04-26 22:32] VITALS: BP 110/60
[2017-04-27 05:20] VITALS: BP 110/74
--- NOTE | 2017-04-27 07:14 | PN- Housestaff ---
Abdirahman BOBO,Matthias 04/27/17 0713: Subjective Follow-up For: SI L 5th metatarsal fx Subjective: Patient was seen and examined at bedside. He is resting on telemetry. He had no acute events overnight. He has had no events since being taken off a one-to- one monitor. He does admit to episodes of depression but we discussed how much it would hurt those in his life especially his , and he admits he is not likely to act on these thoughts. He continues to complain of mild tenderness of the left foot and has no new complaints. Review of Systems Constitutional: Reports: no symptoms. Cardiovascular: Reports: no symptoms. Respiratory: Reports: no symptoms. Gastrointestinal: Reports: no symptoms. Genitourinary: Reports: no symptoms. Musculoskeletal: Reports: joint pain. Skin: Reports: no symptoms. Objective Last 24 Hrs of Vital Signs/I&O Vital Signs Date Time Temp Pulse Resp B/P B/P Pulse O2 O2 Flow FiO2 Mean Ox Delivery Rate 04/27 0520 97.7 60 20 110/74 92 Room Air 04/26 2232 99.0 68 16 110/60 93 Room Air 04/26 1437 98.0 73 20 108/68 93 Intake & Output 04/27 0800 04/27 0000 04/26 1600 Intake Total 480 600 800 Output Total 300 150 Balance 180 450 800 Intake, Oral 480 600 800 Number 3 1 Bowel Movements Output, Urine 300 150 Physical Exam General Appearance: Alert, Oriented X3, Cooperative, No Acute Distress Skin Temp/Moisture Exam: Warm/Dry Cardiovascular: Regular Rate, Normal S1, Normal S2 Lungs: Clear to Auscultation, Normal Air Movement Abdomen: Normal Bowel Sounds, Soft, No Tenderness Neurological: Normal Speech, Normal Tone, Sensation Intact Extremities: No Clubbing, No Cyanosis, No Edema, surgical boot on L foot, mild TTP of the L lateral aspect Current Medications: Current Medications Sig/Gi Start time Last Medication Dose Route Stop Time Status Admin Cholecalciferol 1,000 IU DAILY 04/23 1000 AC 04/26 PO 09 Divalproex Sodium 125 MG BID 04/19 2199 AC 04/26 PO 213 Enoxaparin Sodium 30 MG DAILY 04/17 210 AC 04/26 SC 0902 Gabapentin 300 MG TID 04/17 2199 AC 04/26 PO 213 Patient Medication 1 ED ONE ONE 04/26 1530 DC 04/26 Teaching ED 04/26 1531 1636 Polyethylene Glycol 17 GM AT BEDTIME 04/17 2200 AC 04/26 PO 2135 Sertraline HCl 150 MG DAILY 04/26 1000 AC 04/26 PO 0901 Tamsulosin HCl 0.4 MG DAILY 04/18 1000 AC 04/26 PO 0902 Warfarin Sodium 3 MG COUMADIN 1700 ONE 04/26 1700 DC 04/26 PO 04/26 1701 1636 Last 24 Hrs of Lab/Matt Results Last 24 Hrs of Labs/Mics: Laboratory Tests 04/27/17 0815: Anion Gap 14, Estimated GFR > 60, BUN/Creatinine Ratio 26.0 H, PT 23.0 H, INR 2.09 H Assessment/Plan Assessment: Patient is an 87-year-old male with a PMH significant for trigeminal neuralgia, dementia, DVT on warfarin, BPH, arthritis, anxiety, depression, Zenker's diverticulum who presented complaining of frequent falls at home. He has been experiencing weakness with associated dizziness and falls. He denied any associated symptoms indicative of neuro cardiogenic syncope. #Multifactorial gait disorder with associated weakness MRI showed chronic small vessel ischemic changes with no acute pathology -Patient is awaiting placement in geriatric psych bed -Continue to work with physical therapy #Fracture of the R 5th metatarsal Swelling has resolved, continued tenderness but improving -Continue to work with physical therapy, may ambulate as tolerated with surgical boot -continue ice and elevation -outpatient follow up with podiatry #History of depression with suicidal ideations Continues to have suicidal ideations but states he does not plan to act on them, as had no events since being taken off the one-to-one sitter for 24 hours. -Continue sertraline and Depakote -Currently awaiting placement #Chronic medical problems -Continue home medications -Dose Coumadin based on INR Diet: Heart healthy DVT prophylaxis: Warfarin, ALPS CODE STATUS: Full code Problem List: 1. Metatarsal fracture 2. Suicidal ideation 3. Depression Pain Ratin Pain Location: pain well controlled at rest Pain Goal: Remain pain free Pain Plan: pain pathway Tomorrow's Labs & Rationales: inr Severo Salazar MD 04/27/17 1056: Attending MD Review Statement Attending Statement Attending MD Statement: examined this patient, discuss w/resident/PA/CRANE MANAGER, agreed w/resident/PA/CRANE MANAGER, reviewed EMR data (avail) Attending Assessment/Plan: 87M PMH trigeminal neuralgia, dementia, DVT on Coumadin, BPH, anxiety, depression, Zenker's diverticulum admitted for recurrent falls with negative MRI head and lab findings, expressing depression and suicidal thoughts, with generalized weakness, deconditioning, and unsteady gait. Patient walked with PT yesterday, now has pain and tenderness to the lateral aspect of his left foot. He is otherwise well and has no complaints. X-ray shows fifth metatarsal hairline non-displaced fracture on the left. 1. Unsteady gait 2. Deconditioning 3. Generalized weakness 4. Suicidal ideation 5. Left closed non-displaced fifth metatarsal fracture Plan - Stable for discharge to geriatric psychiatric inpatient setting - Follow podiatry recommendations for boot - Follow psychiatry recommendations - Continue home medications - Continue to work with PT - DVT PPx
[2017-04-27 14:24] VITALS: BP 102/60
[2017-04-27 22:20] VITALS: BP 122/74
[2017-04-28 06:11] VITALS: BP 120/74
--- NOTE | 2017-04-28 07:30 | PN- Housestaff ---
Abdirahman BOBO,Matthias 04/28/17 5130: Subjective Follow-up For: Depression and suicidal ideation Left fifth metatarsal fracture secondary to fall at home Subjective: Patient was seen and examined at bedside. He is resting comfortably. He had no acute events overnight. He is still complaining of mild left lateral foot tenderness but has no other complaints. Review of Systems Constitutional: Reports: no symptoms. EENTM: Reports: no symptoms. Cardiovascular: Reports: no symptoms. Respiratory: Reports: no symptoms. Gastrointestinal: Reports: no symptoms. Genitourinary: Reports: no symptoms. Musculoskeletal: Reports: no symptoms. Skin: Reports: no symptoms. Neurological/Psychological: Reports: no symptoms. Objective Last 24 Hrs of Vital Signs/I&O Vital Signs Date Time Temp Pulse Resp B/P B/P Pulse O2 O2 Flow FiO2 Mean Ox Delivery Rate 04/28 0611 98.1 57 20 120/74 93 Room Air 04/27 2220 98.4 67 20 122/74 94 Room Air 04/27 1424 98.7 77 20 102/60 93 Room Air 04/27 1140 Room Air Room Air 04/27 1136 Room Air Room Air 04/27 0940 76 110/60 04/27 0800 Room Air Intake & Output 04/28 0800 04/28 0000 04/27 1600 Intake Total 692 441 7864 Output Total 400 Balance 360 800 660 Intake, IV 20 Intake, Oral 059 689 8980 Number 1 2 Bowel Movements Output, Urine 400 Physical Exam General Appearance: Alert, Oriented X3, Cooperative Sepsis Skin Exam (color): Normal for Ethnicity Cardiovascular: Regular Rate, Normal S1, Normal S2 Lungs: Clear to Auscultation, Normal Air Movement Abdomen: Normal Bowel Sounds, Soft, No Tenderness Neurological: Normal Speech, Normal Tone, Sensation Intact Extremities: No Clubbing, No Cyanosis, No Edema, L foot lateral aspect is tender to palpation Current Medications: Current Medications Sig/Gi Start time Last Medication Dose Route Stop Time Status Admin Cholecalciferol 1,000 IU DAILY 04/23 1000 AC 04/27 PO 0940 Divalproex Sodium 125 MG BID 04/19 2199 AC 04/27 PO 2041 Enoxaparin Sodium 30 MG DAILY 04/17 2105 AC 04/27 SC 0941 Gabapentin 300 MG TID 04/17 2199 AC 04/27 PO 2041 Polyethylene Glycol 17 GM AT BEDTIME 04/17 2199 AC 04/27 PO 2042 Sertraline HCl 150 MG DAILY 04/26 1000 AC 04/27 PO 0940 Tamsulosin HCl 0.4 MG DAILY 04/18 1000 AC 04/27 PO 0940 Warfarin Sodium 4 MG COUMADIN 1700 ONE 04/27 1700 DC 04/27 PO 04/27 1701 1601 Last 24 Hrs of Lab/Matt Results Last 24 Hrs of Labs/Mics: Laboratory Tests 04/27/17 0815: Anion Gap 14, Estimated GFR > 60, BUN/Creatinine Ratio 26.0 H, PT 23.0 H, INR 2.09 H Assessment/Plan Assessment: Patient is an 87-year-old male with a PMH significant for trigeminal neuralgia, dementia, DVT on warfarin, BPH, arthritis, anxiety, depression, Zenker's diverticulum who presented complaining of frequent falls at home. He has been experiencing weakness with associated dizziness and falls. He denied any associated symptoms indicative of neuro cardiogenic syncope. #Multifactorial gait disorder with associated weakness MRI showed chronic small vessel ischemic changes with no acute pathology -patient is stable for discharge -Continue to work physical therapy at [facility] #Fracture of the R 5th metatarsal secondary to mechanical fall at home Swelling has resolved, continued tenderness but improving -continue ice and elevation -outpatient follow up with podiatry #History of depression with suicidal ideations Continues to admit to episodes of depression, but states he has no plans to act on suicidal ideations -Continue sertraline and Depakote -has been placed in a [facility] bed and is stable for discharge #Chronic medical problems -Continue home medications -Dose Coumadin based on INR Diet: Heart healthy DVT prophylaxis: Warfarin, ALPS CODE STATUS: Full code Problem List: 1. Metatarsal fracture 2. Suicidal ideation 3. Dementia 4. Depression Pain Ratin Pain Location: pain well controlled at rest Pain Goal: Remain pain free Pain Plan: pain pathway Tomorrow's Labs & Rationales: none Discharge Plan Discharge Disposition: STR/NH Stable for Discharge? Yes Anticipated Discharge (Day): today If Discharged Today/In 24 Hrs: enter antc discharge ord, W-10/discharge paper done, DC summary done, CMR done Mckenzie BOBO,Rosanne 04/28/17 1400: Attending MD Review Statement Attending Statement Attending MD Statement: examined this patient, discuss w/resident/PA/USER EXPERIENCE DEVELOPER, agreed w/resident/PA/USER EXPERIENCE DEVELOPER, discussed with family, reviewed EMR data (avail), discussed with nursing, reviewed images Attending Assessment/Plan: Patient has been accepted at [facility] for the [facility] bed. The human services case manager and I spoke to the patient and the patient's . The patient's understands that we are very limited with our choices in terms of [facility]- psych. Given his depression and suicidal ideation and ongoing psychiatric issues, this is the best plan of care for him. We are going to continue the medications that was started here by psychiatry, continue his Coumadin to keep his INR therapeutic with close outpatient follow-up.
[2017-04-28 10:57] VITALS: BP 132/60
== END 2017-04-28 12:31 | DRG 881 ==
LOC: ERH 09:51 → 2NA 12:54 → ERHI 12:54 → ENRESERV 15:10 → CANRESERV 15:10 → ENRESERV 15:16 → ENTRNSPT 15:52 → EDTRNSPTSTS 16:04 → 2NA 16:19 → CMPTRNSPT 16:26 → 2NA 16:29 → ENPENDDIS 04-28 11:10 → 2NA 04-28 12:31
PROVIDERS: Dermatology; Internal Medicine; Physician Assistant Medical; Student in an Organized Health Care Education/Training Program
DX: F32.9 Major depressive disorder, single episode, unspecified (principal); F03.90 Unspecified dementia, unspecified severity, without behavioral disturbance, psychotic disturbance, mood disturbance, and anxiety; R45.851 Suicidal ideations; R26.81 Unsteadiness on feet; I10 Essential (primary) hypertension; G50.0 Trigeminal neuralgia; Z91.81 History of falling; R53.1 Weakness; S92.352A Displaced fracture of fifth metatarsal bone, left foot, initial encounter for closed fracture; W18.30XA Fall on same level, unspecified, initial encounter; Z86.718 Personal history of other venous thrombosis and embolism; Z79.01 Long term (current) use of anticoagulants; F41.9 Anxiety disorder, unspecified; K22.5 Diverticulum of esophagus, acquired; Z88.5 Allergy status to narcotic agent; Z88.0 Allergy status to penicillin; H26.9 Unspecified cataract; M19.90 Unspecified osteoarthritis, unspecified site; R30.0 Dysuria; N40.1 Benign prostatic hyperplasia with lower urinary tract symptoms; R32 Unspecified urinary incontinence
CPT/HCPCS: 2NASP; 70552; 36415; 36592; 70553; 71045; 73630-LT; 81001; 81003; 82436; 87086; 93005; 93010; 97110-GO; 97116-GO; 97161-GP; 97530-GO; 97530-GP; A9579; G8978-GP; G8979-GP; J1650

== ENCOUNTER 2017-05-18 14:43 | Emergency (ER) | payer OTHER, MEDICARE ==
[~2017-05-18] VITALS: Ht 162.6 cm; Wt 77.1 kg
[~2017-05-18 14:43] MED LIST changes: +DEPAKOTE SPRIN125 M1 PO; +GABAPENTIN300 M2 PO; +TAMSULOSIN HCL0.4 M1 PO; +WARFARIN SODIUM4 M1 PO; +ZOLOFT100 M1 PO
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
[2017-05-18 16:18] LABS: ABSOLUTE BASOPHIL COUNT 0 /CUMM (0.0-0.2); ABSOLUTE EOSINOPHIL COUNT 0.3 /CUMM (0.0-0.7); ABSOLUTE GRANULOCYTE CT 5.8 /CUMM (1.4-6.5); ABSOLUTE LYMPH COUNT 1.1 /CUMM (1.2-3.4); ABSOLUTE MONOCYTE COUNT 0.6 /CUMM (0.10-0.60); BASOPHIL % 0.5 % (0.0-2.0); EOSINOPHIL % 4.3 % (0-5); GRANULOCYTE % 74.2 % (42.2-75.2); HEMATOCRIT 41.4 % (42-52); MEAN CORPUSCULAR HGB 28.9 PG (27.0-31.0); MEAN CORPUSCULAR HGB CONC 33.3 G/DL (33.0-37.0); MEAN CORPUSCULAR VOLUME 86.8 FL (80.0-94.0); MEAN PLATELET VOLUME 6.4 FL (7.4-10.4); PLATELET COUNT 317 /CUMM (130-400); RBC DISTRIBUTION WIDTH 16.1 % (11.5-14.5); RED BLOOD CELL CT 4.77 /CUMM (4.70-6.10); WHITE BLOOD CELL COUNT 7.9 /CUMM (4.8-10.8)
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
[2017-05-18] MEDS ORDERED: DONEPEZIL HCL5 MG PO (18:37)
[2017-05-18] MEDS ORDERED: TRAZODONE HCL50 M1 PO (18:38)
[2017-05-18] MEDS ORDERED: ESCITALOPRAM OX10 MG PO (18:38)
[2017-05-18] MEDS ORDERED: TAMSULOSIN HCL0.4 M1 PO (18:39)
[2017-05-18] MEDS ORDERED: ARIPIPRAZOLE2 MG PO (18:39)
[2017-05-18 19:11] LABS: PT 32.2 SEC (9.4-12.5)
--- NOTE | 2017-05-18 20:09 | ED PSYCH CRISIS CONSULTATION ---
Crisis Consult Basic Assessment Date of Consult: 05/18/17 Responsible Person/Accompanied By: Brought in by and son Insurance Authorization: Insurance #1: Insurance name: MEDICARE A Phone number: Policy number: [id number] Group number: Authorization number: ED Provider: Patient's ED Provider: Dave Oswald DO Primary Care Physician: Patient's PCP: Alexandria Jones MD PCP's Current Psychiatrist: None Chief Complaint: General Adult Patient's Quote: "I'm not sure, because my and sonbrought me here." Present Illness: The patient is an 87 year old, male who presented to the ED with his and son after increasing confusion and making threats to harm himself and others. He presents neat, clean and well-groomed in his own attire. The patient presents oriented to person, place and situation, however believes that it is 1921. He is pleasantly confused and answered I dont know, you need to ask my , to the majority of questions asked. When asked why he is in the ED, he replies, Im not sure because my and son brought me here. He does endorse some depression and anxiety, rating them a 7 out of 10, 10 being the most severe. The patient states that he does feel helpless and hopeless re: his current situation. He was not sure what the plan was, however is aware that his family is requesting a placement. The patient became upset and preoccupied with the financial portion of placement and felt that he has paid into Medicare for the majority of his life and it should be covered. 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 When asked about suicidal ideation, he states I thought about it, but I havent got the nerve and I couldnt do it myself. When asked about a plan, he states I havent given it that much thought. He reports that he was diagnosed with Dementia and that everything he is going through is very difficult, Its no good to get old. He was recently hospitalized at [facility], MATURITY CHECKER Adriana Borrego spoke with [facility] and stated They report pt was confused at baseline and had intermittent periods of mood lability and confusion at baseline. He understands that he will be spending the night in the ED and the plan will be worked on further in the morning. SW spoke to his , Tamara De Leon ([phone]), for collateral information. Tamara confirms that she met with MATURITY CHECKER Adriana Borrego and Hvac Design Mechanical Engineer and that they discussed terminal carman placement for the patient. Tamara states that the patient was diagnosed with Dementia and that he has become too difficult to manage at home, it like he is Dr. Curiel and Mr. Serna. Tamara states that he has made comments about harming her or their son and she is concerned about his impulsivity. Tamara will continue to work with Case Management on placement in the AM. Patient's Address: [address] [place] [address] Other Phone Number: Who Do You Live With? Family ( and son) Family/Informants Interviewed: - Tamara De LeonFonrtfxbpjk-[phone] Allergies - Coded Allergies: Penicillins (UNKNOWN 12/29/16) morphine (UNKNOWN 12/29/16) Current Medications - Scheduled Medications Aripiprazole 2 MG TABLET 1 TAB PO QHS SLEEP/MOOD #30 (Reported) Entered as Reported by Monique Higgins on 05/18/17 183 Donepezil HCl 5 MG TABLET 1 TAB PO QHS DEMENTIA #30 (Reported) Entered as Reported by Monique Higgins on 05/18/17 183 Escitalopram Oxalate 10 MG TABLET 1 TAB PO DAILY DEPRESSION #30 (Reported) Entered as Reported by Mnoique Higgins on 05/18/17 183 Gabapentin 300 MG CAPSULE 1 CAP PO BID NEURALGIA #540 (Reported) Entered as Reported by Pam Morrell on 04/17/17 1024 Tamsulosin HCl 0.4 MG CAP.ER.24H 1 CAP PO DAILY BPH #60 (Reported) Entered as Reported by Monique Higgins on 05/18/17 183 Trazodone HCl 50 MG TABLET 1 TAB PO QPM BEHAVIOR/MOOD/SLEEP #15 (Reported) Entered as Reported by Monique Higgins on 05/18/17 1838 Last Taken: 05/17/17 Warfarin Sodium 4 MG TABLET 1 TAB PO DAILY HEART HEALTH #30 (Reported) Entered as Reported by Pam Morrell on 04/17/17 1024 Last Taken: 05/17/17 Laboratory Results: Laboratory Tests 05/18/17 1619: Urine Opiates Screen < 100, Methadone Screen 49, Barbiturate Screen < 60, Ur Phencyclidine Scrn < 6.00, Amphetamines Screen 156, U Benzodiazepines Scrn < 85, Urine Cocaine Screen < 50, Urine Cannabis Screen < 5.00, Urine Color YEL, Urine Clarity CLEAR, Urine pH 5.5, Ur Specific Hamilton >= 1.030, Urine Protein NEG, Urine Ketones NEG, Urine Nitrite NEG, Urine Bilirubin NEG, Urine Urobilinogen 0.2, Ur Leukocyte Esterase NEG, Ur Microscopic EXAM NOT REQUIRED, Urine Hemoglobin NEG, Urine Glucose NEG 05/18/17 1607: Anion Gap 11, Estimated GFR > 60, BUN/Creatinine Ratio 20.9, Glucose 103 H, Calcium 9.7, TSH &T3 &Free T4 Intrp 0.910, PT 32.2 H, INR 2.92 H, CBC w Diff NO MAN DIFF REQ, RBC 4.77, MCV 86.8, MCH 28.9, MCHC 33.3, RDW 16.1 H, MPV 6.4 L, Gran % 74.2, Lymphocytes % 13.4 L, Monocytes % 7.6, Eosinophils % 4.3, Basophils % 0.5, Absolute Granulocytes 5.8, Absolute Lymphocytes 1.1 L, Absolute Monocytes 0.6, Absolute Eosinophils 0.3, Absolute Basophils 0, Serum Alcohol < 10.0 (Margarette Rivas LCSW) Addendum Note Addendum Crisis reviewed case with case management. Family is not interested in terminal carman care. Family has decided to take pt home with case management identifying in- home service supports. Pt has no acute psychiatric symtoms at this time. (Inderjit Chatman LCSW) Past History Past Medical History Neurological: dementia EENT: cataracts Cardiovascular: DVT Respiratory: NONE Gastrointestinal: DIVERTICUM OF ESOPHAGUS ZERIKER DIVERTICULUM Hepatic: NONE Renal: benign prost hyperplasia Musculoskeletal: degen joint disease, ARTHRITIS Psychiatric: anxiety, MAJOR DEPRESSIVE D/O Endocrine: NONE Blood Disorders: NONE Cancer(s): NONE CLUTCH OPERATOR/Reproductive: NONE Past Surgical History Surgical History: non-contributory Psychosocial History Strengths/Capabilities: He has a supoprtive family. Physical Limitations (Interventions): Pt. reports intermittent difficulty swallowing Psychiatric Treatment History Psych Treatment Psychiatric Treatment Yes Inpatient Treatment Yes Outpatient Treatment No Location of Treatment [facility] Reason for Treatment Dementia with behavioral disturbances Dates of Treatment April 2017 Response to Treatment Per Hilary he was at [facility] when discharged. Diagnosis by History: Dementia Substance Use/Abuse History Drug Use/Abuse Substances Used/Abused No First Use N/A Last Used N/A How much used/taken N/A How often N/A For how long N/A Route of use N/A Substance Abuse Treatment Substance Abuse Treatment Past Substance Abuse [place] No Inpatient Treatment No Outpatient Treatment No Location of Treatment N/A Reason for Treatment N/A Dates of Treatment N/A Response to Treatment N/A Comments: N/A (Margarette Rivas LCSW) Current Mental Status Mental Status Orientation: Current situation, Person, Place, He thought that it was 1921...He was pleasantly confused throughout the evaluation and stated " I don't know," to the majority of questions asked. Affect: WNL Speech: WNL Neuro-vegetative: WNL Appearance Appearance- Dress/Hygiene: He presented neat, clean and well groomed in his own attire. Behaviors Thought Process: WNL Thought Content: WNL Memory: Immediate Insight: Fair SI/HI Risk Assessment Past Suicidal Ideation/Attempts Yes Current Suicidal Ideation/Att Yes Past Homicidal Ideation/Att: Yes Current Homicidal Ideation/Attempts No Degree of Intent: He has made suicidal and homicidal statements in the past, however has never made any attempts. He states that he would not kill himself, but that sometimes he thinks about it. Danger To: Others, Self (secondary to Dementia) Gravely Disabled: Poor Impulse Control Risk Factors: age (under 24/over 65), high anxiety/distress, SA/MH hospitalized Lethality Ratin PTSD Checklist PTSD Done? pt unable to participate (secondary to Dementia) ED Management Sitter: Yes Restraints: No (Margarette Rivas LCSW) DSM5/PS Stressors/Medical Prob Diagnosis' (DSM 5, Stressors, Medical): R41.9 Unspecified Neurocognitive Disorder Medical: Per records- Arthritis, Benign Prostate Hyperplasia, Degenerative joint Disease Stressors: issues related to aging and Dementia diagnosis Current GAF: 25 Comments: N/A (Margarette Rivas LCSW) Departure Disposition Psych Medical Clearance Date: 05/18/17 Medically Cleared at: 1700 Time Started: 1845 Time Ended: 1930 Psychiatrist Consulted: Dr. Solo Date Disposition Established: 05/18/17 Time Disposition Established: 1999 Plan for Disposition - Modality: Hold over for placement with Case Management Rationale for Disposition: The patient has become increasingly confused and impulsive at home, secondary to symptoms of Dementia. His states that he is too difficult to manage and that she is fearful for her safety, therefore is requesting fci placement. The patient was recently at [facility] for a Geriatric Psychiatric Placement and they found his current presentation to be his new baseline- see separate collateral note by JHONATAN Borrego Case discussed with Dr. Solo and he is in agreement with the plan. The patients met with Nasar from Case Management and will work with her tomorrow re: placement. Additional Instructions: N/A Referrals Alexandria Jones MD (PCP/Family) (Evelyn ISRAEL,Margarette)
[2017-05-19 14:55] VITALS: BP 118/60
== END 2017-05-19 15:12 | disposition still patient (30) ==
LOC: ERH 14:43
PROVIDERS: Emergency Medicine
DX: F03.91 Unspecified dementia, unspecified severity, with behavioral disturbance (principal)
CPT/HCPCS: 80307; 81003; 93005; 93010; G0463; G0480

== ENCOUNTER 2017-07-11 13:54 | Inpatient (IN) | payer OTHER, MEDICARE ==
[~2017-07-11] VITALS: Ht 162.6 cm; Wt 85.0 kg
[~2017-07-11 13:54] MED LIST changes: +ARIPIPRAZOLE2 MG PO; +DONEPEZIL HCL5 MG PO; +ESCITALOPRAM OX10 MG PO; +TRAZODONE HCL50 M1 PO; -WARFARIN SODIUM4 M1 PO; +WARFARIN SODIUM5 M1 PO
--- NOTE | 2017-07-11 14:38 | ED GENERAL ADULT ---
History of Present Illness General Chief Complaint: Altered Mental Status Stated Complaint: AMS Source: family Exam Limitations: confusion, dementia, poor historian Vital Signs & Intake/Output Vital Signs & Intake/Output Vital Signs Date Time Temp Pulse Resp B/P B/P Pulse O2 O2 Flow FiO2 Mean Ox Delivery Rate 07/14 1240 98.0 63 20 122/72 06/06 0818 63 122/72 06/06 0646 98.0 63 20 122/72 93 Room Air 06 2142 99.2 78 20 130/72 94 Room Air ED Intake and Output 07/14 0000 05 1200 Intake Total 850 480 Output Total Balance 850 480 Intake, IV 90 240 Intake, Oral 760 240 Patient 188 lb Weight Tachycardia at rest; concerning for infectious process/volume depletion Allergies Coded Allergies: Penicillins (UNKNOWN 12/29/16) morphine (UNKNOWN 12/29/16) Triage Note: 87 YO MALE BIBA FROM HOME. PER , PT WOKE UP AND WAS ACTING PER BASELINE. STATES AROUND 10:15AM HE STARTING SHAKING AND MUMBLING HIS WORDS. STATES SHE HELPED HIM TO BED AND HE TOOK A NAP. STATES WHEN HE WOKE UP HE WASNT ANY BETTER. ON ARRIVAL, PT A&O X3, HX OF DEMENTIA. PT DENIES ANY PAIN. NEUROS INTACT, EQUAL HAND GRAPS AND SMILE. PT NTOED WITH NONPRODUCTIVE COUGH. RA SATS 94-95%. PT WARM TO TOUCH. INCONTINENT AT BASELINE, PER , PT USUSALLY A&O X2 AND USES A WALKER AT HOME. Triage Nurses Notes Reviewed? yes Onset: Abrupt Duration: hour(s): Timing: single episode today Severity: moderate No Modifying Factors: none HPI: This is an 86-year-old male with history of dementia, peripheral vascular disease on Coumadin, prior admission for pneumonia, presenting to the emergency department with altered mental status. According to , patient was in his normal state of health this morning but gradually began experiencing weakness with full body shaking. He was also incontinent of urine. He is less verbal than baseline and diffusely weak. There has been a subjective fever. No vomiting, diarrhea, denies any chest pain or shortness of breath but ROS is limited by altered mental status. states the patient has frequent choking episodes while eating food. (Bruno BOBO,Fco) Reconcile Medications Aripiprazole 2 MG TABLET 1 TAB PO QHS SLEEP/MOOD (Reported) Calcium Carbonate/Vitamin D3 (Calcium 500 + D Tablet) (Unknown Strength) TABLET (Unknown Dose) PO QAM SUPPLEMENT (Reported) Donepezil HCl 5 MG TABLET 1 TAB PO QHS DEMENTIA (Reported) Gabapentin 300 MG CAPSULE 1 CAP PO BID NEURALGIA (Reported) Lactobac Cmb #3/Fos/Pantethine (Probiotic & Acidophilus Cap) 300MM-250 CAPSULE 1 CAP PO BID probiotics Tamsulosin HCl 0.4 MG CAP.ER.24H 2 CAP PO DAILY BPH (Reported) Trazodone HCl 150 MG TABLET 1 TAB PO QHS SLEEP (Reported) Warfarin Sodium (Coumadin) 4 MG TABLET 1 TAB PO DAILY BLOOD THINNER (Jordan Rodriguez MD) Past History Travel History Traveled to [place] past 21 day No Medical History Any Pertinent Medical History? 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 Hepatic: NONE Renal: benign prost hyperplasia Musculoskeletal: degen joint disease, ARTHRITIS Psychiatric: anxiety, MAJOR DEPRESSIVE D/O Endocrine: NONE Blood Disorders: NONE Cancer(s): NONE REGISTERED PHARMACIST/Reproductive: NONE History of MRSA: No History of VRE: No History of CDIFF: No Surgical History Surgical History: non-contributory Psychosocial History Who do you live with Family Services at Home None What is your primary language Botswanan Tobacco Use: Never used Family History Family History, If Any: MOTHER FH: breast cancer FATHER FH: muscular dystrophy Hx Contributory? No (Fco Carr MD) Review of Systems Review of Systems Constitutional: Reports: chills, malaise, weakness. EENTM: Reports: no symptoms. Respiratory: Reports: cough (non-productive). Cardiovascular: Reports: no symptoms. GI: Reports: no symptoms. Genitourinary: Reports: see HPI. Musculoskeletal: Reports: see HPI. Skin: Reports: no symptoms. (Fco Carr MD) Physical Exam Physical Exam General Appearance: mild distress, Elderly, frail appearing male, confused but alert Head: atraumatic, normal appearance Eyes: Bilateral: normal appearance, PERRL, EOMI. Ears, Nose, Throat: normal pharynx, normal ENT inspection, hearing grossly normal Neck: normal inspection, supple, full range of motion Respiratory: Breath sounds diminished in bilateral bases Cardiovascular: regular rate/rhythm, edema Gastrointestinal: soft, non-tender Rectal: normal exam Back: normal inspection Extremities: normal inspection Neurologic/Psych: no motor/sensory deficits, awake, alert, Oriented to self, place; confused to time; moving all extremities; no focal deficits. Speaking in short sentences; following commands Skin: Warm and moist Core Measures ACS in differential dx? Yes CVA/TIA Diagnosis: No NIH Stroke Scale (24 Hours) NIH Stroke Scale (24 Hours) Response Value Level of Consciousness alert 0 LOC Questions answers one correctly 1 LOC Commands obeys both correctly 0 Best Gaze normal 0 Visual [place] no visual loss 0 Facial Paresis normal 0 Motor Arm - Left no drift 0 Motor Arm - Right no drift 0 Motor Leg - Left no drift 0 Motor Leg - Right no drift 0 Limb Ataxia no ataxia 0 Sensory normal 0 Best Language no aphasia 0 Dysarthria normal articulation 0 Extinction and Inattention no neglect 0 Total 1 Sepsis Present: Yes (Suspected) Sepsis Focused Exam Completed? Yes (Bruno BOBO,Fco) Progress Differential Diagnoses I considered the following diagnoses in my evaluation of the patient: Sepsis secondary to pneumonia or urinary tract infection, mild concern for central nervous system infection although will defer LP at this time given other likely sources and unclear overall picture, metabolic derangement, hypoglycemia, occult infection, lower suspicion for acute intracranial hemorrhage or cerebrovascular accident given lack of focality or suggestive physical exam findings or vital signs, mild concern for ACS in this patient with potential for atypical presentation. Plan of Care: Orders Procedure Date/time Status THYROID STIMULATING HORMONE 07/14 0532 Complete FREE T4 07/15 631 Complete Discharge Patient 07/14 UNK Active Lab Add-on Test 07/14 UNK Active Discontinue Telemetry/Monitor 07/14 UNK Active Laboratory Tests 07/14/17 0632: Anion Gap 9, Estimated GFR > 60, BUN/Creatinine Ratio 12.0, TSH 2.770, Free T4 1.46, PT 24.2 H, INR 2.20 H, CBC w Diff NO MAN DIFF REQ, RBC 4.40 L, MCV 87.7 , MCH 29.3, MCHC 33.5, RDW 16.3 H, MPV 7.6, Gran % 78.4 H, Lymphocytes % 13.0 L, Monocytes % 5.3, Eosinophils % 3.0, Basophils % 0.3, Absolute Granulocytes 7.7 H, Absolute Lymphocytes 1.3, Absolute Monocytes 0.5, Absolute Eosinophils 0.3, Absolute Basophils 0 Initial ED EKG: normal axis, none, normal intervals, normal QRS complex, normal sinus rhythm, NSR, LAE Comments: Differential diagnoses as above. Given that this patient has suffered a acute on chronic deterioration of his baseline mental status and he is tachycardic and weak, he will likely require admission to the hospital. Low threshold to start antibiotics if we identify any infectious diagnostics. CXR is not particularly concerning for aspiration pneumonia, but could be consistent with atypical infection, CT head as below: SERVICE DATE: 07/11/17 EXAM TYPE: CAT - CT HEAD WO IV CONTRAST EXAMINATION: CT HEAD WITHOUT CONTRAST CLINICAL INFORMATION: Altered mental status. COMPARISON: Brain MRI dated 04/19/2017. TECHNIQUE: Contiguous axial imaging was performed from the skull base to vertex without intravenous administration of contrast. DLP: 615.4 mGy-cm FINDINGS: There is no evidence of acute intracranial hemorrhage or territorial infarction. No abnormal mass effect or midline shift is seen. Mendez to white matter differentiation is well preserved. No extra-axial fluid collections are identified. The ventricles are normal in size. Mild to moderate chronic white matter microangiopathic changes are present. The osseous structures and soft tissues are normal. The mastoid air cells are well aerated. Small fluid levels are present in the right sphenoid and right maxillary sinuses. IMPRESSION: No acute intracranial pathology. 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 Urinalysis is not consistent with acute infection but is mildly bloody, likely secondary to difficulties and repeated attempted straight cath. He has no elevation to lactate but is noted to have a leukocytosis. His abdomen exam remains benign. Given these findings, will treat patient for likely community acquired pneumonia with IV ceftriaxone and azithromycin. Case discussed with Dr. Gomes hospitalist, [facility]. (Bruno BOBOFco) Departure Departure Disposition: STILL A PATIENT Condition: Stable Clinical Impression Primary Impression: Pneumonia Secondary Impressions: Altered mental status, Weakness Referrals: Alexandria Jones MD (PCP/Family) Departure Forms: Customer Survey General Discharge Information Admission Note Spoke With: Rosanne Rincon MD Documentation of Exam: Documentation of any treatments & extenuating circumstances including Concerns Regarding Discharge (functional status, medication knowledge or non-compliance, living conditions, etc.) that warrant an admission rather than observation: IV abx, close monitoring, frequent reassessment; ADLs, blood cultures pending, labs , VS, PT evalutation. (Fco Carr MD) Departure Prescriptions: Current Visit Scripts Lactobac Cmb #3/Fos/Pantethine (Probiotic & Acidophilus Cap) 1 CAP PO BID #60 CAP Warfarin Sodium (Coumadin) 1 TAB PO DAILY #30 TAB Resident Co-Sign Statement Statement: ED Attending supervision documentation- I saw and evaluated the patient. I have also reviewed all the pertinent lab results and diagnostic results. I agree with the findings and the plan of care as documented in the Resident's documentation. x I have reviewed the ED Record and agree with the Resident's documentation. [] Additions or exceptions (if any) to the Resident's note and plan are summarized below: [] (Michael BOBO,Jordan) Critical Care Note Critical Care Note Critical Care Time: non-applicable (Fco Carr MD) Urinalysis is not consistent with acute infection but is mildly bloody, likely secondary to difficulties and repeated attempted straight cath. He has no elevation to lactate but is noted to have a leukocytosis. His abdomen exam remains benign. Given these findings, will treat patient for likely community acquired pneumonia with IV ceftriaxone and azithromycin. Case discussed with Dr. Gomes hospitalist, [facility]. Departure Departure Disposition: STILL A PATIENT Condition: Stable Clinical Impression Primary Impression: Pneumonia Secondary Impressions: Altered mental status, Weakness Referrals: Alexandria Jones MD (PCP/Family) Departure Forms: Customer Survey General Discharge Information Admission Note Spoke With: Rosanne Rincon MD Documentation of Exam: Documentation of any treatments & extenuating circumstances including Concerns Regarding Discharge (functional status, medication knowledge or non-compliance, living conditions, etc.) that warrant an admission rather than observation: IV abx, close monitoring, frequent reassessment; ADLs, blood cultures pending, labs , VS, PT evalutation. Critical Care Note Critical Care Note Critical Care Time: non-applicable
--- NOTE | 2017-07-11 14:53 | RADIOLOGY REPORT ---
EXAMINATION: XR PORTABLE CHEST CLINICAL INFORMATION: Sepsis, altered mental status COMPARISON: 04/17/2017 TECHNIQUE: Portable AP view of the chest was obtained. FINDINGS: The cardiac and mediastinal silhouettes are prominent likely related to the portable technique. Mild vascular congestion with a slight increase in interstitial markings. There are streaky bibasilar markings. No pleural effusions. Marked degenerative change in the bilateral shoulders. IMPRESSION: 1. Mild pulmonary edema suspected. 2. Streaky basilar opacities may reflect atelectasis or scarring. No well-defined consolidation or pleural effusion.
--- NOTE | 2017-07-11 15:11 | CT SCAN REPORT ---
EXAMINATION: CT HEAD WITHOUT CONTRAST CLINICAL INFORMATION: Altered mental status. COMPARISON: Brain MRI dated 04/19/2017. TECHNIQUE: Contiguous axial imaging was performed from the skull base to vertex without intravenous administration of contrast. DLP: 615.4 mGy-cm FINDINGS: There is no evidence of acute intracranial hemorrhage or territorial infarction. No abnormal mass effect or midline shift is seen. Mendez to white matter differentiation is well preserved. No extra-axial fluid collections are identified. The ventricles are normal in size. Mild to moderate chronic white matter microangiopathic changes are present. The osseous structures and soft tissues are normal. The mastoid air cells are well aerated. Small fluid levels are present in the right sphenoid and right maxillary sinuses. IMPRESSION: No acute intracranial pathology. 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
[2017-07-11 15:19] LABS: ABSOLUTE BASOPHIL COUNT 0 /CUMM (0.0-0.2); ABSOLUTE EOSINOPHIL COUNT 0 /CUMM (0.0-0.7); ABSOLUTE GRANULOCYTE CT 12.3 /CUMM (1.4-6.5); ABSOLUTE LYMPH COUNT 0.8 /CUMM (1.2-3.4); ABSOLUTE MONOCYTE COUNT 0.5 /CUMM (0.10-0.60); BASOPHIL % 0.1 % (0.0-2.0); EOSINOPHIL % 0.2 % (0-5); GRANULOCYTE % 89.8 % (42.2-75.2); HEMATOCRIT 42.5 % (42-52); MEAN PLATELET VOLUME 6.8 FL (7.4-10.4); PLATELET COUNT 308 /CUMM (130-400); RBC DISTRIBUTION WIDTH 16.3 % (11.5-14.5); RED BLOOD CELL CT 4.83 /CUMM (4.70-6.10); WHITE BLOOD CELL COUNT 13.7 /CUMM (4.8-10.8)
[2017-07-11 15:25] LABS: PTT 54 SEC (25-37)
[2017-07-11 15:32] LABS: PT 52.3 SEC (9.4-12.5)
--- NOTE | 2017-07-11 16:55 | History & Physical ---
Sadie BOBO,Macho 07/11/17 2774: General Information and HPI MD Statement: I have seen and personally examined SHANIA HOLGUIN and documented this H&P. The patient is a 87 year old M who presented with a patient stated chief complaint of [ams]. Source of Information: patient, family, old records Exam Limitations: clinical condition History of Present Illness: Patient is an 87-year-old male with past medical history dementia, trigeminal neuralgia, Zenker's diverticulum of the esophagus, BPH, degenerative joint disease, anxiety, major depressive disorder, cataract, peripheral vascular disease, DVT on Coumadin(2013), recent admission for pneumonia BIBA from the home because of altered mental status. According to the patient was in his normal state of health in the morning. He was working on his computer table, but anyhow was sitting on the half chair, so she tried to make him comfortable but he was not able to get up from the chair. She called her son who helped to push the chair near the bed and later they moved the patient on the bed after which he slept for around 2 hours and when he woke up he was having, slight facial droop on the left side along with drooling of saliva and his hands were stiff. He was not able to get out of the bed due to weakness. His suspected that he is having stroke so they called the ambulance who brought him here. Denies any fever, chills, chest pain, nausea, vomiting, diarrhea, constipation, trauma, any change in medicine. Of note he had history of 2 falls in the last week, because of trapping, and imbalance. Allergies -penicillin, morphine Surgical history - Dysphagia status post correction of Zenker's diverticulum/cricopharyngeal myotomy, barium swallow demonstrating stricture.(2013) History of prostate surgery Stent in the right leg 2007 Bilateral cataract surgery 2013 Umbilical hernia and diastasis rectus,mesh repair laparoscopically (2012) Epidural abscess (2008) s/p laminectomy Personal history-he walks with a walker, lives with the family denies smoking and alcohol use Primary care provider -Alexandria Jones MD(last visit June 15) Cardiology-Dr. Soliman [place]-Dr. baer Neurologist-Dr. Wilson last visit 4 months ago Allergies/Medications Allergies: Coded Allergies: Penicillins (UNKNOWN 12/29/16) morphine (UNKNOWN 12/29/16) Past History Travel History Traveled to [place] past 21 day No Medical History Neurological: dementia EENT: cataracts Cardiovascular: DVT Respiratory: NONE Gastrointestinal: DIVERTICUM OF ESOPHAGUS ZERIKER DIVERTICULUM Hepatic: NONE Renal: benign prost hyperplasia Musculoskeletal: degen joint disease, ARTHRITIS Psychiatric: anxiety, MAJOR DEPRESSIVE D/O Endocrine: NONE Blood Disorders: NONE Cancer(s): NONE MOLTEN IRON POURER/Reproductive: NONE History of MRSA: No History of VRE: No History of CDIFF: No Surgical History Surgical History: non-contributory Past Family/Social History Family History Relations & Conditions if any MOTHER FH: breast cancer FATHER FH: muscular dystrophy Psychosocial History Services at Home: None Review of Systems Review of Systems Constitutional: Denies: no symptoms. Exam & Diagnostic Data Last 24 Hrs of Vital Signs/I&O Vital Signs Date Time Temp Pulse Resp B/P B/P Pulse O2 O2 Flow FiO2 Mean Ox Delivery Rate 07/11 1627 98.4 70 18 148/67 95 Room Air 07/11 1406 95 Room Air 07/11 1404 96.3 110 18 163/78 95 Room Air Intake & Output 07/11 1600 07/11 0800 07/11 0000 Intake Total 0 Output Total Balance 0 Intake, Oral 0 Patient 79.379 kg Weight Weight Reported by Patient Measurement Method Physical Exam General Appearance Alert, Oriented X3, Cooperative, No Acute Distress Skin angular chelosis HEENT Atraumatic, PERRLA, EOMI Neck Supple, No JVD Cardiovascular Normal S1, Normal S2 Lungs Clear to Auscultation, Normal Air Movement Abdomen Soft, he was having tender abdoman on palpation,Bowel sounds are positive Neurological he was oriented ax3, there was left sided facial deviation, tremors on both hand including face, specially on intension,power 4/5 all four limbs Extremities No Clubbing, No Cyanosis, No Edema Vascular Normal Pulses, Pulses Symmetrical Last 24 Hrs of Labs/Matt: Laboratory Tests 07/11/17 1531: Urine Color BLDY H, Urine Clarity TURBD H, Urine pH 6.0, Ur Specific [place] 1.020, Urine Protein 100 H, Urine Ketones NEG, Urine Nitrite NEG, Urine Bilirubin NEG, Urine Urobilinogen 0.2, Ur Leukocyte Esterase NEG, Ur Microscopic SEDIMENT EXAMINED, Urine RBC PACKD H, Urine WBC 3-5 H, Ur Epithelial Cells RARE, Urine Bacteria RARE H, Urine Mucus FEW, Urine Hemoglobin LARGE H, Urine Glucose NEG 07/11/17 1500: Anion Gap 10, Estimated GFR > 60, BUN/Creatinine Ratio 15.5, Glucose 116 H, Lactic Acid 1.2, Calcium 9.9, Total Bilirubin 1.5 H, AST 17, ALT 23, Alkaline Phosphatase 84, Troponin I < 0.01, Total Protein 7.4, Albumin 4.0, Globulin 3.4, Albumin/Globulin Ratio 1.2, TSH 0.868, PT 52.3 *H, INR 4.72 *H, APTT 54 H, CBC w Diff MAN DIFF ORDERED, RBC 4.83, MCV 88.0, MCH 29.0, MCHC 33.0, RDW 16.3 H, MPV 6.8 L, Gran % 89.8 H, Lymphocytes % 6.0 L, Monocytes % 3.9, Eosinophils % 0.2, Basophils % 0.1, Absolute Granulocytes 12.3 H, Absolute Lymphocytes 0.8 L , Absolute Monocytes 0.5, Absolute Eosinophils 0, Absolute Basophils 0, Platelet Estimate VERIFIED BY SMEAR, Anisocytosis 1+ 07/11/17 1438: TSH Cancelled Microbiology 07/11 1604 BLOOD: Blood Culture - RECD 07/11 1531 URINE ROUT: Urine Culture - RECD 07/11 1500 BLOOD: Blood Culture - RECD Assessment/Plan Assessment: Patient is an 87-year-old male with past medical history dementia, trigeminal neuralgia, Zenker's diverticulum of the esophagus, BPH, degenerative joint disease, anxiety, major depressive disorder, cataract, peripheral vascular disease, DVT on Coumadin, recent admission for pneumonia BIBA from the home because of altered mental status. ED course- Vital signs-temperature 96.3, pulse 110, respiratory rate 18, blood pressure 160 /78, SPO2 95% on room air. Blood workup showed -WBC 13.7, hemoglobin 14.0, hematocrit 42.5, platelet count 308, serum sodium 139, potassium 4.5, chloride 101, BUN 17, creatinine 1.1, glucose 116, lactic acid 1.2, calcium 9.9, total bilirubin 1.5, AST 17, ALT 23, alkaline phosphatase 84, total protein 7.4, albumin 4.0, globulin 3.4, TSH 0.866 , troponin I less than 0.01, PT/INR 52.3/4.72, urinalysis showed -hematuria, urine protein 100, RBC packed, WBC 3.5, bacteria rare, hemoglobin large. 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 Echocardiogram(2014) -stage I diastolic dysfunction, RVSP 9 mmHg, mild SC, Chest x-ray - 1. Mild pulmonary edema suspected. 2. Streaky basilar opacities may reflect atelectasis or scarring. No well-defined consolidation or pleural effusion. Assessment and plan - Supratherapeutic INR -plastic Hold the Coumadin for now We will repeat PT/INR tomorrow and decide for Coumadin dosing Mild pulmonary edema with atelectasis possibly secondary to recurrent aspiration but CHF cannot be ruled out - * We will keep the patient n.p.o. * He failed bedside swallow evaluation. speech and swallow evaluation tomorrow * We will consider GI evaluation if needed * We will start the patient on injection ceftriaxone 1 g IV daily(patient is allergic to Unasyn so cannot be given) * Physical therapy * We will do very gentle hydration IV saline 30 cc/h * we call Dr Soliman in [facility], for echocardiogram and evaluation of pulmonary edema. Left-sided facial deviation along with swelling of the speech - * CT scan of the head -no any acute intracranial hemorrhage or infarct * We will do neuro check every 4 hourly * If there is any change in neurological status then we will consider MRI * We will consider neurology-Dr. Wilson to know his baseline status. Chronic medical condition -dementia, BPH We will hold on medication including trazodone, gabapentin, aripiprazole, donepezil, tamsulosin. Diet -n.p.o. DVT prophylaxis-ALPS, avoid heparin as patient has high therapeutic INR CODE STATUS -DNR/DNI As Ranked By This Provider Problem List: 1. Altered mental status Core Measures/Misc (10/25) Acute Coronary Syndrome ACS Diagnosis: No Congestive Heart Failure Congestive Heart Failure Diagnosis No Cerebrovascular Accident CVA/TIA Diagnosis: No VTE (View Protocol) VTE Risk Factors Age>40 No Mechanical VTE Prophylaxis d/t N/A MechProphylax Ordered No VTE Pharm Prophylaxis d/t Bleeding (Active) Sepsis (View protocol) Sepsis Present: No If YES complete Sepsis Event Note If YES complete Sepsis Event Note Rosanne Rincon MD 07/11/17 1811: General Information and HPI Allergies/Medications Home Med list Aripiprazole 2 MG TABLET 1 TAB PO QHS SLEEP/MOOD (Reported) Calcium Carbonate/Vitamin D3 (Calcium 500 + D Tablet) (Unknown Strength) TABLET (Unknown Dose) PO QAM SUPPLEMENT (Reported) Donepezil HCl 5 MG TABLET 1 TAB PO QHS DEMENTIA (Reported) Gabapentin 300 MG CAPSULE 1 CAP PO BID NEURALGIA (Reported) Tamsulosin HCl 0.4 MG CAP.ER.24H 2 CAP PO DAILY BPH (Reported) Trazodone HCl 150 MG TABLET 1 TAB PO QHS SLEEP (Reported) Warfarin Sodium 4 MG TABLET 1 TAB PO QPM BLOOD THINNER (Reported) Core Measures/Misc (10/25) Sepsis (View protocol) If YES complete Sepsis Event Note If YES complete Sepsis Event Note Attending MD Review Statement Attending Statement Attending MD Statement: examined this patient, discuss w/resident/PA/HANDKERCHIEF CUTTER, agreed w/resident/PA/HANDKERCHIEF CUTTER, reviewed EMR data (avail), discussed with nursing, reviewed images Attending Assessment/Plan: 87 year old male PMH DVT on coumadin, trigeminal neuralgia, depression brought in for altered mentation - weakness, poor PO intake, shaking, leukocytosis and indeterminate Chest xray. From the history and clinical features, it appears most likely to be an aspiration pneumonia. Pt falied bedisde swallow done by the resident in the ED. Will keep him NPO, start IV Unasyn and get a formal swallow eval in am. Pt's chest xray is being read as possibly CHF however clinically it does not appear so. Will get an echo and f/u with Cardiology. Hold meds while NPO, DVT prophylaxis, PT eval and f/u.
[2017-07-11] MEDS ORDERED: TRAZODONE HCL150 M1 PO (17:25)
[2017-07-11] MEDS ORDERED: CALCIUM 500 +1 EAC5 PO (17:26)
--- NOTE | 2017-07-11 18:14 | Admission Certification ---
Admission Certification Certification Statement - As attending physician, I certify that at the time of - admission, based on clinical presentation, severity of - symptoms, need for further diagnostic testing and - therapeutic interventions, and risk of adverse outcomes - without in-hospital treatment, in my clinical assessment, - this patient requires an acute hospital stay for a minimum - of two nights or longer. I have also considered psychsocial - factors such as support system, advanced age, financial - issues, cognitive issues, and failed out-patient treatments, - past re-admission history, safety of patient, and lack of - compliance as applicable. Specific rationale supporting this admission is: altered menattion, suspected pneumonia
[2017-07-12 03:51] LABS: ABSOLUTE BASOPHIL COUNT 0 /CUMM (0.0-0.2); ABSOLUTE EOSINOPHIL COUNT 0.1 /CUMM (0.0-0.7); ABSOLUTE LYMPH COUNT 0.9 /CUMM (1.2-3.4); BASOPHIL % 0.5 % (0.0-2.0)
[2017-07-12 03:56] LABS: ABSOLUTE GRANULOCYTE CT 7.1 /CUMM (1.4-6.5); ABSOLUTE MONOCYTE COUNT 0.4 /CUMM (0.10-0.60); EOSINOPHIL % 1.3 % (0-5); GRANULOCYTE % 82.8 % (42.2-75.2); MEAN CORPUSCULAR HGB 29.4 PG (27.0-31.0); MEAN CORPUSCULAR HGB CONC 33.5 G/DL (33.0-37.0); MEAN CORPUSCULAR VOLUME 87.8 FL (80.0-94.0); MEAN PLATELET VOLUME 6.7 FL (7.4-10.4); PLATELET COUNT 280 /CUMM (130-400); RBC DISTRIBUTION WIDTH 16.3 % (11.5-14.5); RED BLOOD CELL CT 4.25 /CUMM (4.70-6.10); WHITE BLOOD CELL COUNT 8.6 /CUMM (4.8-10.8)
[2017-07-12 03:59] LABS: HEMATOCRIT 37.3 % (42-52)
[2017-07-12 04:10] LABS: PT 49.8 SEC (9.4-12.5)
[2017-07-12 06:36] VITALS: BP 145/71
[2017-07-12 06:53] VITALS: BP 152/82
--- NOTE | 2017-07-12 08:02 | PN- Housestaff ---
Denis BOBO,[facility] 07/12/17 0802: Subjective Follow-up For: AMS Tele-Events Since Last Visit: off tele Subjective: Patient seen and examined at bedside. States he wishes to take one day at a time. No complaints in particular. Review of Systems Constitutional: Reports: no symptoms. Objective Last 24 Hrs of Vital Signs/I&O Vital Signs Date Time Temp Pulse Resp B/P B/P Pulse O2 O2 Flow FiO2 Mean Ox Delivery Rate 07/12 0653 98.0 61 20 152/82 95 Room Air 07/12 0636 98.0 60 20 145/71 97 Room Air 07/11 2139 98.1 62 20 124/64 94 Room Air 07/11 2016 99.0 86 20 118/79 95 Room Air 07/12 2015 99.0 07/11 1931 99.9 07/11 1858 99.9 07/11 1811 98.6 76 18 136/85 95 Room Air 07/11 1627 98.4 70 18 148/67 95 Room Air 07/11 1406 95 Room Air 07/11 1404 96.3 110 18 163/78 95 Room Air Intake & Output 07/12 1600 07/12 0800 07/12 0000 Intake Total 240 Output Total Balance 240 Intake, IV 240 Number 8 Bowel Movements Patient 189 lb Weight Weight Bed scale Measurement Method Physical Exam General Appearance: Alert, Oriented X3, Cooperative, Mild Distress Skin: No Rashes, No Breakdown Skin Temp/Moisture Exam: Warm/Dry Sepsis Skin Exam (color): Normal for Ethnicity HEENT: Atraumatic Cardiovascular: Normal S1, Normal S2, No Murmurs Lungs: Clear to Auscultation, Normal Air Movement Abdomen: Soft, No Tenderness Neurological: Normal Speech Extremities: b/l lower extremity edema Last 24 Hrs of Lab/Matt Results Last 24 Hrs of Labs/Mics: Laboratory Tests 07/12/17 0330: PT 49.8 *H, INR 4.50 *H, CBC w Diff NO MAN DIFF REQ, RBC 4.25 L, MCV 87.8, MCH 29.4, MCHC 33.5, RDW 16.3 H, MPV 6.7 L, Gran % 82.8 H, Lymphocytes % 10.6 L, Monocytes % 4.8, Eosinophils % 1.3, Basophils % 0.5, Absolute Granulocytes 7.1 H, Absolute Lymphocytes 0.9 L, Absolute Monocytes 0.4, Absolute Eosinophils 0.1 , Absolute Basophils 0 07/11/17 1723: Lactic Acid Cancelled 07/11/17 1531: Urine Color BLDY H, Urine Clarity TURBD H, Urine pH 6.0, Ur Specific [place] 1.020, Urine Protein 100 H, Urine Ketones NEG, Urine Nitrite NEG, Urine Bilirubin NEG, Urine Urobilinogen 0.2, Ur Leukocyte Esterase NEG, Ur Microscopic SEDIMENT EXAMINED, Urine RBC PACKD H, Urine WBC 3-5 H, Ur Epithelial Cells RARE, Urine Bacteria RARE H, Urine Mucus FEW, Urine Hemoglobin LARGE H, Urine Glucose NEG 07/11/17 1500: Anion Gap 10, Estimated GFR > 60, BUN/Creatinine Ratio 15.5, Glucose 116 H, Lactic Acid 1.2, Calcium 9.9, Total Bilirubin 1.5 H, AST 17, ALT 23, Alkaline Phosphatase 84, Troponin I < 0.01, Total Protein 7.4, Albumin 4.0, Globulin 3.4, Albumin/Globulin Ratio 1.2, TSH 0.868, PT 52.3 *H, INR 4.72 *H, APTT 54 H, CBC w Diff MAN DIFF ORDERED, RBC 4.83, MCV 88.0, MCH 29.0, MCHC 33.0, RDW 16.3 H, MPV 6.8 L, Gran % 89.8 H, Lymphocytes % 6.0 L, Monocytes % 3.9, Eosinophils % 0.2, Basophils % 0.1, Absolute Granulocytes 12.3 H, Absolute Lymphocytes 0.8 L , Absolute Monocytes 0.5, Absolute Eosinophils 0, Absolute Basophils 0, Platelet Estimate VERIFIED BY SMEAR, Anisocytosis 1+ 07/11/17 1438: TSH Cancelled Microbiology 07/12 0330 STOOL: Clostridium difficile Toxin A & B - RECD 07/12 0330 STOOL: Stool Culture - RECD 07/11 1604 BLOOD: Blood Culture - RES 07/11 1531 URINE ROUT: Urine Culture - RES 07/11 1500 BLOOD: Blood Culture - RES Assessment/Plan Assessment: 87-year-old male with past medical history dementia, trigeminal neuralgia, Zenker's diverticulum of the esophagus, BPH, degenerative joint disease, anxiety , major depressive disorder, cataract, peripheral vascular disease, DVT on Coumadin(2013), recent admission for pneumonia BIBA from the home because of altered mental status. Assessment: 1. Altered Mental Status - resolved 2. ?Aspiration Pneumonia 3. Supratherapeutic INR 4. Mild Pulmonary Edema Plan: * His mental status appears to be back at his baseline. However, he could have delirium which has a waxing/waning course. * He does not appear to have any obvious facial droop or slurring of speech. * Continue IV Ceftriaxone for possible aspiration pneumonia * He passed his swallow evaluation with recommeded purree and honey diet. * Hold Coumadin * Echocardiogram - pending. * PT eval * Will restart his home medications: donepezil, aripiprazole and tamsulosin. Will hold trazodone for now. Can be restarted at a lower dose if needed. * Diet: Regular with puree and honey thick * DVT Prophylaxis: ALPs. His INR is supratherapeutic * Code: DNR/DNI Problem List: 1. Altered mental status Pain Ratin Pain Location: none Pain Goal: Remain pain free Pain Plan: none Tomorrow's Labs & Rationales: CBC, INR Juni Garcia 07/12/17 1226: Attending MD Review Statement Attending Statement Attending MD Statement: examined this patient, discuss w/resident/PA/CLINICAL SYSTEMS ANALYST, agreed w/resident/PA/CLINICAL SYSTEMS ANALYST, discussed with family, reviewed EMR data (avail), discussed with nursing, discussed with case mgmt, reviewed images, amended to note Attending Assessment/Plan: 87 year old male PMH Dementia, DVT on coumadin, trigeminal neuralgia, depression brought in for altered mentation - weakness, poor PO intake, shaking, leukocytosis and chest xray suspicous of aspiration pneumonia. Pt falied bedisde swallow done by the resident in the ED. NPO, Continue IV Unasyn and f/u formal swallow eval. f/u echo and f/u with Cardiology. Dementia continue provide supportive care , avoid dleirium triggers PT eval and f/u. gi/dvt prophylaxis dni/dnr
[2017-07-12 14:51] VITALS: BP 102/52
--- NOTE | 2017-07-12 20:59 | Cons- Cardiology ---
General Information and HPI Consulting Request Date of Consult: 07/12/17 Requested By: Juni Garcia MD History of Present Illness: Brian is an 87 year old male with hiustory of CVA and prior DVT. He does have an IVC filter. At baseline he has no shortness of breath at his mild level of activity although he does have some chest discomfort with exertion. He has mild and infrequent lightheadedness without palpitaitons. At his baseline, he can walk up a flight of 12 steps but this will get him tired out. This patient was brought to the ER for evaluation of mental status changes and lethargy. He was too weak to arise from a chair and also was noted to have a left facial droop that was concerning for an acute stroke. He has mild shortness of breath with activity but no other complaints. A chest X-ray did disclose some pulmonary edema. To review the patient's prior historyk, over the course of the past year this patient has had some symptoms that may be related to his prior stroke. An MRI has showed evidence of old bilateral basal ganglia lacunar infarcts. This initially manifested as problems with swallowing. Cardiac workup has included stress testswhich showed no evidence of myocardial ischemiawith a normal EFof 72 %. He also underwent and echocardiographic study also whowed a EF of 60%. There was mild left atrial dilitation. In terms of cardiac valves, there was mild mitral regurgitation and trace pulmonic insufficiency. The mitral valve also showed mild ot moderate prolapse of the posterior leaflet. Allergies/Medications Allergies: Coded Allergies: Penicillins (UNKNOWN 12/29/16) morphine (UNKNOWN 12/29/16) Home Med List: Aripiprazole 2 MG TABLET 1 TAB PO QHS SLEEP/MOOD (Reported) Calcium Carbonate/Vitamin D3 (Calcium 500 + D Tablet) (Unknown Strength) TABLET (Unknown Dose) PO QAM SUPPLEMENT (Reported) Donepezil HCl 5 MG TABLET 1 TAB PO QHS DEMENTIA (Reported) Gabapentin 300 MG CAPSULE 1 CAP PO BID NEURALGIA (Reported) Tamsulosin HCl 0.4 MG CAP.ER.24H 2 CAP PO DAILY BPH (Reported) Trazodone HCl 150 MG TABLET 1 TAB PO QHS SLEEP (Reported) Warfarin Sodium 5 MG TABLET 1 TAB PO DAILY DVT (Reported) Past History Travel History Traveled to [place] past 21 day No Medical History Neurological: dementia, lacunar infarcts with prior feeding tube placement EENT: cataracts Cardiovascular: DVT s/p IVC filter Respiratory: NONE Gastrointestinal: DIVERTICUM OF ESOPHAGUS ZERIKER DIVERTICULUM, Gilbert's disease Hepatic: NONE Renal: benign prost hyperplasia Musculoskeletal: degen joint disease, ARTHRITIS Psychiatric: anxiety, MAJOR DEPRESSIVE D/O Endocrine: NONE Blood Disorders: NONE Cancer(s): NONE TOBACCO CLASSER/Reproductive: NONE Other Medical Hx: psoas muscle abcess Surgical History Surgical History: L4-L5 and L3-L4 laminectomy with epidural abcess drainage Family History Relations & Conditions If Any: MOTHER FH: breast cancer FATHER FH: muscular dystrophy Family History Reviewed? Father: muscular dystrophy Mother: diabetes and breast cancer Psychosocial History Where Do You Live? Home Services at Home: None Smoking Status: Former Smoker ETOH Use: denies use Exam & Diagnostic Data Vital Signs and I&O Vital Signs Date Time Temp Pulse Resp B/P B/P Pulse O2 O2 Flow FiO2 Mean Ox Delivery Rate 07/12 1451 97.8 73 18 102/52 92 Room Air 07/12 1442 61 152/82 07/12 0653 98.0 61 20 152/82 95 Room Air 07/12 0636 98.0 60 20 145/71 97 Room Air 07/11 2139 98.1 62 20 124/64 94 Room Air Intake & Output 07/12 1600 07/12 0800 / 0000 07/11 1600 07/11 0800 07/11 0000 Intake Total 450 240 0 Output Total Balance 450 240 0 Intake, IV 210 240 Intake, Oral 240 0 Number 2 8 Bowel Movements Patient 189 lb 175 lb Weight Weight Bed scale Reported by Patient Measurement Method Physical Exam: General: WD/WN male in NAD; awake and confused HEENT: NC/AT, PERRL, EOMI Neck: no JVD, no carotid bruit Heart: RRR with +ve S4 Lungs: clear bilaterally Abdomen: soft, NT, +ve bowel sounds Extremities: no edema Assessment/Plan Assessment/Plan * This patient has had multiple DVT's and will need to remain on chronic anticoagulation. His INR is supratherapeutic and may be held until it comes down to 2.0. He does have some protection against a PE by his IVC filter. * This patient clearly has mental status changes beyond his baseline. Check a free T4. He does have known dementia and multiple old lacunar infarcts. Would also check a D-dimer although his risk of a PE is low considering his being on coumadin. * I do not think this patient has decompensated CHF at this time but agree on obtaining an echocardiogram to assess his EF. Consult Acknowledgment - Thank you for your consult request.
[2017-07-12 22:18] VITALS: BP 100/56
[2017-07-13 06:48] VITALS: BP 130/70
--- NOTE | 2017-07-13 07:08 | ECHOCARDIOGRAM REPORT ---
SHANIA HOLGUIN Age: 87 : 1930 Gender: M Exam Date: 07/12/2017 20:12 Exam Location: [address] Ht (in): 64 Wt (lb): 189 BSA: 2.00 BP: 102 / 52 Ordering Physician: Jolene Noel MD Referring Physician: Casper Soliman MD, PhD Technologist: Kizzy Carvalho [facility] Room Number: [id number] Indications: PULMONARY HYPERTENSION Rhythm: Sinus Technical Quality: good FINDINGS Left Ventricle Normal left ventricular size with mild left ventricular hypertrophy. Normal systolic function with no obvious regional wall motion abnormalities. Diastolic filling pattern is consistent with impaired LV relaxation. The ejection fraction is visually estimated at 70%. Right Ventricle The right ventricle is normal in size and function. Right Atrium The right atrium is normal in size. Left Atrium The left atrium is normal in size. The interatrial septum is intact. Mitral Valve The mitral valve is normal in structure and function. There is trace mitral regurgitation. Aortic Valve Structurally normal aortic valve without significant sclerosis or stenosis. There is no aortic regurgitation. Tricuspid Valve The tricuspid valve is normal in structure and function. There is trace tricuspid regurgitation. Pulmonary artery systolic pressure is normal. Pulmonic Valve Structurally normal pulmonic valve. There is mild pulmonic regurgitation. Pericardium Normal pericardium without effusion. No pleural effusion. Great Vessels Normal aortic root dimension. The aortic arch and great vessels are well seen and are normal. CONCLUSIONS 1. Normal EF of 70% with impaired LV relaxation. 2. Mild left ventricular hypertrophy. 3. Trace mitral regurgitation. 4. Trace tricuspid regurgitation. 5. Mild pulmonic regurgitation. Casper Soliman M.D. (Electronically Signed) Final Date: 13 July 2017 07:07 MEASUREMENTS (Male / Female) Normal Values 2D ECHO LV Diastolic Diameter PLAX 4.2 cm 4.2 - 5.9 / 3.9 - 5.3 cm LV Systolic Diameter PLAX 2.0 cm 2.1 - 4.0 cm LV Fractional Shortening PLAX 52.4 % 25 - 46 % LV Ejection Fraction 2D Teich 83.8 % IVS Diastolic Thickness 1.2 cm LVPW Diastolic Thickness 1.2 cm LV Relative Wall Thickness 0.6 RV Internal Dim ED PLAX 3.2 cm 1.9 - 3.8 cm LVOT Diameter 2.0 cm Aortic Root Diameter 3.0 cm LA Systolic Diameter LX 3.3 cm 3.0 - 4.0 / 2.7 - 3.8 cm LA Volume 38.0 cm 18 - 58 / 22 - 52 cm Ascending Aorta Diameter 3.1 cm DOPPLER AV Peak Velocity 133.0 cm/s AV Peak Gradient 7.1 mmHg AV Mean Velocity 95.0 cm/s AV Mean Gradient 4.0 mmHg AV Velocity Time Integral 26.0 cm LVOT Peak Velocity 109.0 cm/s LVOT Peak Gradient 4.8 mmHg LVOT Mean Velocity 73.6 cm/s LVOT Mean Gradient 2.0 mmHg LVOT Velocity Time Integral 23.9 cm LVOT Stroke Volume 75.1 cm AV Area Cont Eq vti 2.9 cm AV Area Cont Eq pk 2.6 cm MV Peak Velocity 108.0 cm/s MV Peak Gradient 4.7 mmHg MV Mean Velocity 66.4 cm/s MV Mean Gradient 2.0 mmHg Mitral E Point Velocity 79.5 cm/s Mitral A Point Velocity 99.2 cm/s Mitral E to A Ratio 0.8 MV PHT Velocity 83.6 cm/s MV Deceleration [place] 203.0 cm/s MV Pressure Half Time 123.5 ms MV Area PHT 1.8 cm MV Deceleration Time 235.0 ms TR Peak Velocity 122.0 cm/s TR Peak Gradient 6.0 mmHg Right Atrial Pressure 5.0 mmHg Pulmonary Artery Systolic Pressu 11.0 mmHg Right Ventricular Systolic Press 11.0 mmHg PV Peak Velocity 146.0 cm/s PV Peak Gradient 8.5 mmHg PV Mean Velocity 86.6 cm/s PV Mean Gradient 4.0 mmHg PV Velocity Time Integral 24.7 cm LV E' Lateral Velocity 12.9 cm/s Mitral E to LV E' Lateral Ratio 6.2 LV E' Septal Velocity 8.9 cm/s Mitral E to LV E' Septal Ratio 9.0
[2017-07-13 07:54] LABS: ABSOLUTE BASOPHIL COUNT 0 /CUMM (0.0-0.2); ABSOLUTE EOSINOPHIL COUNT 0.2 /CUMM (0.0-0.7); ABSOLUTE GRANULOCYTE CT 5.5 /CUMM (1.4-6.5); ABSOLUTE LYMPH COUNT 1.1 /CUMM (1.2-3.4); ABSOLUTE MONOCYTE COUNT 0.5 /CUMM (0.10-0.60); BASOPHIL % 0.6 % (0.0-2.0); EOSINOPHIL % 3.1 % (0-5); HEMATOCRIT 37.2 % (42-52); MEAN CORPUSCULAR HGB 29.5 PG (27.0-31.0); MEAN CORPUSCULAR HGB CONC 33.7 G/DL (33.0-37.0); MEAN CORPUSCULAR VOLUME 87.6 FL (80.0-94.0); MEAN PLATELET VOLUME 7.1 FL (7.4-10.4); PLATELET COUNT 272 /CUMM (130-400); RBC DISTRIBUTION WIDTH 16.3 % (11.5-14.5); RED BLOOD CELL CT 4.25 /CUMM (4.70-6.10); WHITE BLOOD CELL COUNT 7.3 /CUMM (4.8-10.8)
[2017-07-13 08:16] LABS: PT 29.9 SEC (9.4-12.5)
--- NOTE | 2017-07-13 08:41 | PN- Housestaff ---
Marok BOBO,Brii 07/13/17 0841: Subjective Follow-up For: AMS Tele-Events Since Last Visit: off tele Subjective: Patient seen and examined at bedside. States he wishes to take one day at a time. He feels sad because he is more forgetful. Denies any other complaints Review of Systems Constitutional: Reports: see HPI. Cardiovascular: Denies: no symptoms. Respiratory: Denies: no symptoms. Gastrointestinal: Denies: no symptoms. Genitourinary: Denies: no symptoms. Musculoskeletal: Denies: no symptoms. Objective Last 24 Hrs of Vital Signs/I&O Vital Signs Date Time Temp Pulse Resp B/P B/P Pulse O2 O2 Flow FiO2 Mean Ox Delivery Rate 07/13 0850 97.9 67 18 130/70 06/05 0648 97.9 67 18 130/70 93 Room Air / 2218 99.0 76 18 100/56 95 Room Air 07/12 2216 Room Air 07/12 1451 97.8 73 18 102/52 92 Room Air 07/12 1442 61 152/82 Intake & Output 07/13 1600 05 0800 06/05 0000 Intake Total 480 220 Output Total Balance 480 220 Intake, IV 240 Intake, Oral 240 220 Patient 188 lb Weight Weight Bed scale Measurement Method Physical Exam General Appearance: Alert, Cooperative, No Acute Distress HEENT: Atraumatic, PERRLA, EOMI, Mucous Membr. moist/pink Neck: Supple, No JVD Cardiovascular: Normal S1, Normal S2, No Murmurs Lungs: Clear to Auscultation Abdomen: Normal Bowel Sounds, Soft, No Tenderness Extremities: No Clubbing, No Cyanosis, No Edema Assessment/Plan Assessment: 87-year-old male with past medical history dementia, trigeminal neuralgia, Zenker's diverticulum of the esophagus, BPH, degenerative joint disease, anxiety , major depressive disorder, cataract, peripheral vascular disease, DVT on Coumadin(2013), recent admission for pneumonia BIBA from the home because of altered mental status. Assessment: 1. Altered Mental Status - resolved 2. ?Aspiration Pneumonia 3. History of DVT on Coumadin 4. Mild Pulmonary Edema Plan: * His mental status appears to be back at his baseline. However, he could have delirium which has a waxing/waning course. * He does not appear to have any obvious facial droop or slurring of speech. * DC ceftriaxone, start p.o. Keflex 250 mg every 6 * Start p.o. lactobacillus * Follow-up with repeat chest x-ray * He passed his swallow evaluation with recommeded purree and honey diet. * INR today is 2.72, was given Coumadin 5 mg today * Echocardiogram : Normal ejection fraction 70%, impaired left ventricular relaxation, mild LVH, trace MR, TR, HI * PT eval * Continue home medications: donepezil, aripiprazole and tamsulosin. Will hold trazodone for now. Can be restarted at a lower dose if needed. * Diet: Regular with puree and honey thick * DVT Prophylaxis: ALPs. His INR is supratherapeutic * Code: DNR/DNI Problem List: 1. Pneumonia 2. Altered mental status Pain Ratin Pain Location: N/A Pain Goal: Remain pain free Pain Plan: Pathway Tomorrow's Labs & Rationales: CBC BEP INR Juni Garcia 07/13/17 1030: Attending MD Review Statement Attending Statement Attending MD Statement: examined this patient, discuss w/resident/PA/MACHINE HOSE CUTTER, agreed w/resident/PA/MACHINE HOSE CUTTER, discussed with family, reviewed EMR data (avail), discussed with nursing, discussed with case mgmt, reviewed images, amended to note Attending Assessment/Plan: 87 year old male PMH Dementia, DVT on coumadin, trigeminal neuralgia, depression brought in for altered mentation - weakness, poor PO intake, shaking, leukocytosis and chest xray suspicous of aspiration pneumonia. Pt falied bedisde swallow done by the resident in the ED. Poor historian, no new compliants, occasional cough. vitals stable. Patient had speech/swallow evaluation with possible Zenker diverticululm. GI consult. Diet plan as per S/S recs. PO abx, ECHO with preserved EF. Repeat chest xray today. add lactobaciluus. Dementia continue provide supportive care , avoid delirium triggers. PT eval and f/u. gi/dvt prophylaxis dni/dnr.
[2017-07-13 14:04] VITALS: BP 134/70
--- NOTE | 2017-07-13 15:06 | RADIOLOGY REPORT ---
EXAMINATION: XR PORTABLE CHEST CLINICAL INFORMATION: Elevated white blood cell count and aspiration on physical exam. Rule out pneumonia and follow-up effusion. COMPARISON: Chest x-ray dated 07/11/2017. TECHNIQUE: Portable AP erect view of the chest was obtained. FINDINGS: The cardiomediastinal silhouette is within normal limits in size. Calcification of the aortic arch is seen. Lungs bilaterally are symmetrically hypoexpanded with linear subsegmental atelectatic changes seen in the lung bases bilaterally, unchanged on the right side and minimally improved on the left side. No significant pleural effusion is seen. Previously seen mild pulmonary edema has resolved with only minimal central vascular congestion remaining. No focal consolidation, effusion or pneumothorax is seen. Degenerative changes as seen in both shoulder joints. IMPRESSION: Low lung volumes with no change in right basilar subsegmental atelectasis and mild improvement in left basilar subsegmental atelectasis. No significant pleural effusion.
--- NOTE | 2017-07-13 21:02 | PN- Cardiology ---
Subjective Subjective: * This patient has no current shortness of breath. He appears to have some decreased memory and confusion. * INR is 2.72 * Normal EF on echocardiogram Objective Vital Signs and I&Os Vital Signs Date Time Temp Pulse Resp B/P B/P Pulse O2 O2 Flow FiO2 Mean Ox Delivery Rate 07/13 1601 Room Air 07/13 1404 97.8 69 20 134/70 96 Room Air 07/13 0850 97.9 67 18 130/70 06/05 0648 97.9 67 18 130/70 93 Room Air 07/12 2218 99.0 76 18 100/56 95 Room Air 07/12 2216 Room Air Intake & Output 07/13 1600 07/13 0800 / 0000 07/12 1600 07/12 0800 07/12 0000 Intake Total 760 480 220 450 240 Output Total Balance 760 480 220 450 240 Intake, IV 240 210 240 Intake, Oral 760 240 220 240 Number 2 8 Bowel Movements Patient 188 lb 189 lb Weight Weight Bed scale Bed scale Measurement Method Physical Exam: General: WD/WN male in NAD; awake, responsive and confused HEENT: NC/AT, PERRL, EOMI Neck: no JVD, no carotid bruit Heart: RRR with +ve S4 Lungs: clear bilaterally Abdomen: soft, NT, +ve bowel sounds Extremities: no edema Assessment/Plan Assessment/Plan * This patient has had multiple DVT's and will need to remain on chronic anticoagulation. His INR is mildly supratherapeutic today. Would restart coumadin at a smaller dose than taken prior to admission tomorrow. He does have some protection against a PE by his IVC filter. * This patient clearly has mental status changes beyond his baseline although his baseline is not completely normal. He has had a poor memory for some years. Check a free T4. He does have known dementia and multiple old lacunar infarcts. Would also check a D-dimer although his risk of a PE is low considering his being on coumadin. * I do not think this patient has decompensated CHF at this time. Continue telemetry? No
[2017-07-13 21:42] VITALS: BP 130/72
[2017-07-14 06:46] VITALS: BP 122/72
[2017-07-14] MEDS ORDERED: PROBIOTIC & AC1 EACH PO (07:13)
[2017-07-14] MEDS ORDERED: CEPHALEXIN250 M2 PO (07:13)
--- NOTE | 2017-07-14 07:29 | PN- Housestaff ---
Marko BOBO,Brii 07/14/17 0729: Subjective Follow-up For: AMS Aspiration pneumonia Tele-Events Since Last Visit: Off tele Subjective: Patient was seen and examined at bedside, only complaint of difficulty swallowing however he denies any choking after starting his new diet. He also complains of mild cough with whitish sputum. Review of Systems Constitutional: Denies: no symptoms. EENTM: Reports: see HPI. Cardiovascular: Denies: no symptoms. Respiratory: Reports: cough, sputum production. Gastrointestinal: Denies: no symptoms. Genitourinary: Denies: no symptoms. Objective Last 24 Hrs of Vital Signs/I&O Vital Signs Date Time Temp Pulse Resp B/P B/P Pulse O2 O2 Flow FiO2 Mean Ox Delivery Rate 07/14 0818 63 122/72 07/14 0646 98.0 63 20 122/72 93 Room Air / 2142 99.2 78 20 130/72 94 Room Air 07/13 1601 Room Air 07/13 1404 97.8 69 20 134/70 96 Room Air Intake & Output 07/14 1600 07/14 0800 07/14 0000 Intake Total 210 90 Output Total Balance 210 90 Intake, IV 210 90 Patient 188 lb Weight Physical Exam General Appearance: Alert, Cooperative, No Acute Distress HEENT: Atraumatic, PERRLA, EOMI, Mucous Membr. moist/pink Neck: Supple, No JVD Cardiovascular: Normal S1, Normal S2, No Murmurs Lungs: Clear to Auscultation Abdomen: Normal Bowel Sounds, Soft, No Tenderness Extremities: No Clubbing, No Cyanosis, No Edema Assessment/Plan Assessment: 87-year-old male with past medical history dementia, trigeminal neuralgia, Zenker's diverticulum of the esophagus, BPH, degenerative joint disease, anxiety , major depressive disorder, cataract, peripheral vascular disease, DVT on Coumadin(2013), recent admission for pneumonia BIBA from the home because of altered mental status. Assessment: 1. Altered Mental Status - resolved 2. ?Aspiration Pneumonia 3. History of DVT on Coumadin 4. Mild Pulmonary Edema Plan: * His mental status appears to be back at his baseline. However, he could have delirium which has a waxing/waning course. * He does not appear to have any obvious facial droop or slurring of speech. * DC antibiotics * Continue p.o. lactobacillus * repeat chest x-ray did not show any focal consolidation * He passed his swallow evaluation with recommeded purree and honey diet. * INR today is 2.20, was given Coumadin 4 mg today as per cardiology recommendation * Echocardiogram : Normal ejection fraction 70%, impaired left ventricular relaxation, mild LVH, trace MR, TR, IA * PT eval * Continue home medications: donepezil, aripiprazole and tamsulosin. Will hold trazodone for now. Can be restarted at a lower dose if needed. * Diet: Regular with puree and honey thick * DVT Prophylaxis: Coumadin * Code: DNR/DNI Patient is stable to be discharged to [facility] today Problem List: 1. Pneumonia 2. Altered mental status Pain Ratin Pain Location: N/A Pain Goal: Remain pain free Pain Plan: Pathway [facility]'s Labs & Rationales: N/A RadhaAbelsilva 07/14/17 0942: Attending MD Review Statement Attending Statement Attending MD Statement: examined this patient, discuss w/resident/PA/CREDIT CONTROLLER, agreed w/resident/PA/CREDIT CONTROLLER, discussed with family, reviewed EMR data (avail), discussed with nursing, discussed with case mgmt, reviewed images, amended to note Attending Assessment/Plan: 87 year old male PMH Dementia, DVT on coumadin, trigeminal neuralgia, depression brought in for altered mentation - weakness, poor PO intake, shaking, leukocytosis and repeat chest xray suspicous of aspiration pneumonitis without consolidation. Poor historian, no new compliants, occasional cough. vitals stable. Patient had speech/swallow evaluation with possible Zenker diverticululm. GI consulted and recommend o/p f/u ENT. Diet plan as per S/S recs. ECHO with preserved EF. Dementia continue provide supportive care , avoid delirium triggers. PT eval and f/u. gi/dvt prophylaxis dni/dnr.
[2017-07-14] MEDS ORDERED: COUMADIN4 M1 PO (07:39)
--- NOTE | 2017-07-14 07:42 | Patient Discharge Instructions ---
Discharge Instructions General Discharge Information You were seen/treated for: ASPIRATION PNEUMONIA Special Instructions: 1-please follow-up with your PCP in 1 week of discharge 2please follow-up with speech therapist in 1 week of discharge 3please get your INR checked in 3 days of discharge and dose Coumadin accordingly Diet Continue normal diet: No Recommended Diet: puree with honey thick Acute Coronary Syndrome Inclusion Criteria At DC or during hospital stay patient has or had the following: ACS DIAGNOSIS No Discharge Core Measures Meds if any: Prescribed or Continued at Discharge Meds if any: NOT Prescribed or Continued at Discharge Congestive Heart Failure Inclusion Criteria At DC or during hospital stay patient has or had the following: CHF DIAGNOSIS No Discharge Core Measures Meds if any: Prescribed or Continued at Discharge Meds if any: NOT Prescribed or Continued at Discharge Cerebrovascular accident Inclusion Criteria At DC or during hospital stay patient has or had the following: CVA/TIA Diagnosis No Discharge Core Measures Meds if any: Prescribed or Continued at Discharge Meds if any: NOT Prescribed or Continued at Discharge Venous thromboembolism Inclusion Criteria VTE Diagnosis No VTE Type NONE VTE Confirmed by (Test) NONE Discharge Core Measures - Per Current guidelines, there needs to be overlap - treatment for the first 5 days of Warfarin therapy. - If discharged on Warfarin prior to 5 days of - overlap therapy, the patient will need to be - assessed for post discharge needs including - *Post discharge parental anticoagulation - *Warfarin and/or parental anticoagulation education - *Follow up date to check INR post discharge At least 5 days overlap therapy as Inpatient No Meds if any: Prescribed or Continued at Discharge Note: Overlap Therapy is Warfarin and Anticoagulant Meds if any: NOT Prescribed or Continued at Discharge
[2017-07-14 08:03] LABS: ABSOLUTE BASOPHIL COUNT 0 /CUMM (0.0-0.2); ABSOLUTE EOSINOPHIL COUNT 0.3 /CUMM (0.0-0.7); ABSOLUTE GRANULOCYTE CT 7.7 /CUMM (1.4-6.5); ABSOLUTE LYMPH COUNT 1.3 /CUMM (1.2-3.4); ABSOLUTE MONOCYTE COUNT 0.5 /CUMM (0.10-0.60); BASOPHIL % 0.3 % (0.0-2.0); GRANULOCYTE % 78.4 % (42.2-75.2); HEMATOCRIT 38.6 % (42-52); MEAN CORPUSCULAR HGB 29.3 PG (27.0-31.0); MEAN CORPUSCULAR HGB CONC 33.5 G/DL (33.0-37.0); MEAN CORPUSCULAR VOLUME 87.7 FL (80.0-94.0); MEAN PLATELET VOLUME 7.6 FL (7.4-10.4); PLATELET COUNT 266 /CUMM (130-400); RBC DISTRIBUTION WIDTH 16.3 % (11.5-14.5); WHITE BLOOD CELL COUNT 9.8 /CUMM (4.8-10.8)
[2017-07-14 08:15] LABS: PT 24.2 SEC (9.4-12.5)
--- NOTE | 2017-07-14 10:36 | Discharge Summary ---
Visit Information Visit Dates Admission Date: 07/11/17 Discharge Date: 07/14/2017 Hospital Course Course Attending Physician: Juni Garcia MD Primary Care Physician: Robert BOBO,[place] [facility] Course: Mr. 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 intake. On admission but patient had mild leukocytosis with no signs of infection, supratherapeutic INR. Patient was admitted to telemetry floor for chest x-ray finding of mild CHF. Clinically patient was not volume overloaded and per cardiology patient is not in decompensated congestive heart failure, echocardiogram showed normal ejection fraction of 70% with impaired left ventricular relaxation and mild left ventricular hypertrophy, trace mitral, tricuspid and pulmonary regurgitation. Patient was initially treated with antibiotic for questionable aspiration pneumonia however repeated a chest x-ray continue to be clear for any consolidation and antibiotic was discontinued. Swallow evaluation was obtained with recommendation for honey thick liquids and pure solid food, patient has been tolerating diet well with recommendation for speech therapy outpatient follow-up given history of Zenker diverticulum and weak esophageal muscles. Patient's mental status appears to be back at his baseline. Coumadin was restarted and patient will be discharged to [facility] [[email or web address] today. Continue home medications: donepezil, aripiprazole, tamsulosin, trazodone (was on hold in the hospital0. Diet: Regular with puree and honey thick Code: DNR/DNI Allergies: Coded Allergies: Penicillins (UNKNOWN 12/29/16) morphine (UNKNOWN 12/29/16) Disposition Summary Disposition Principal Diagnosis: Aspiration pneumonitis Additional Diagnosis: Zenker's diverticulum with abnormal swallow eval Discharge Disposition: SNF Discharge Instructions General Discharge Information Code Status: Do Not Resucitate/Intubat Patient's Diet: Pure and honey thick Patient's Activity: As tolerated Follow-Up Instructions/Appts: Please follow-up with your primary care physician within 1 week after discharge Please follow-up with cardiology within 1 week after discharge Please follow-up with outpatient speech therapy after discharge Repeat INR and adjust Coumadin dose accordingly Medications at Discharge Discharge Medications: Stop taking the following medications: Warfarin Sodium (Warfarin Sodium) 5 MG TABLET ORAL DAILY Continue taking these medications: Gabapentin (Gabapentin) 300 MG CAPSULE 1 Capsule ORAL TWICE DAILY Qty = 540 Comments: Last Taken: 07/14/17 Time: 0820 AM Donepezil HCl (Donepezil HCl) 5 MG TABLET 1 Tablet ORAL TAKE AT BEDTIME Qty = 30 Comments: Last Taken: 07/13/17 Time: 2139 Aripiprazole (Aripiprazole) 2 MG TABLET 1 Tablet ORAL TAKE AT BEDTIME Qty = 30 Comments: Last Taken: 07/13/17 Time: 2139 Tamsulosin HCl (Tamsulosin HCl) 0.4 MG CAP.ER.24H 2 Capsule ORAL DAILY Qty = 60 Comments: Last Taken: 07/14/17 Time: 0820 AM Trazodone HCl (Trazodone HCl) 150 MG TABLET 1 Tablet ORAL TAKE AT BEDTIME Comments: NOT GIVEN IN HOSPITAL. Calcium Carbonate/Vitamin D3 (Calcium 500 + D Tablet) (Unknown Strength) TABLET Unknown Dose ORAL Every Morning Comments: NOT GIVEN IN HOSPITAL. Start taking the following new medications: Lactobac Cmb #3/Fos/Pantethine (Probiotic & Acidophilus Cap) 300MM-250 CAPSULE 1 Capsule ORAL TWICE DAILY Qty = 60 No Refills Comments: Last Taken: 07/14/17 Time: 0820 AM Warfarin Sodium (Coumadin) 4 MG TABLET 1 Tablet ORAL DAILY Qty = 30 No Refills Comments: Last Taken: 07/13/17 Time: 1920 Copies To: Robert BOBO,[place]; Janny BOBO PHD,Casper Chadwick Attending MD Review Statement Documenting Attending: Radha BOBO,Juni Other Findings: 87 year old male PMH Dementia, DVT on coumadin, trigeminal neuralgia, depression brought in for altered mentation - weakness, poor PO intake, shaking, leukocytosis and repeat chest xray suspicous of aspiration pneumonitis without consolidation. Poor historian, no new compliants, occasional cough. vitals stable. Patient had speech/swallow evaluation with possible Zenker diverticululm. GI consulted and recommend o/p f/u ENT. Diet plan as per S/S recs. ECHO with preserved EF. Dementia continue provide supportive care , avoid delirium triggers. PT eval and recommned STR. dni/dnr.
--- NOTE | 2017-07-14 10:51 | PN- Cardiology ---
Subjective Subjective: * No specific complaints. * INR is 2.2 Objective Vital Signs and I&Os Vital Signs Date Time Temp Pulse Resp B/P B/P Pulse O2 O2 Flow FiO2 Mean Ox Delivery Rate 07/14 0818 63 122/72 07/14 0646 98.0 63 20 122/72 93 Room Air 07/13 2142 99.2 78 20 130/72 94 Room Air 07/13 1601 Room Air 07/13 1404 97.8 69 20 134/70 96 Room Air Intake & Output 07/14 1600 07/14 0800 07/14 0000 07/13 1600 07/13 0800 07/13 0000 Intake Total 210 90 760 480 220 Output Total Balance 210 90 760 480 220 Intake, IV 210 90 240 Intake, Oral 760 240 220 Patient 188 lb 188 lb Weight Weight Bed scale Measurement Method Physical Exam: General: WD/WN male in NAD; awake and responsive HEENT: NC/AT, PERRL, EOMI Neck: no JVD, no carotid bruit Heart: RRR with +ve S4 Lungs: clear bilaterally Abdomen: soft, NT, +ve bowel sounds Extremities: no edema Assessment/Plan Assessment/Plan * This patient has had multiple DVT's and will need to remain on chronic anticoagulation. His INR is now in the therapeutic range. Would restart coumadin at a smaller dose than taken prior to admission. He does have some protection against a PE by his IVC filter. * This patient clearly had mental status changes beyond his baseline although this is improved. He has had a poor memory for some years. He does have known dementia and multiple old lacunar infarcts. * I do not think this patient has decompensated CHF at this time. * Follow up in the office. Continue telemetry? No
[2017-07-14 12:40] VITALS: BP 122/72
== END 2017-07-14 13:20 | DRG 179 ==
LOC: ERH 13:54 → ERHI 16:03 → 1NO 16:03 → ENRESERV 07-12 05:14 → 1NO 07-12 06:48 → ENPENDDIS 07-14 10:33 → 1NO 07-14 13:20
PROVIDERS: Internal Medicine; Internal Medicine Adolescent Medicine; Student in an Organized Health Care Education/Training Program
DX: J69.0 Pneumonitis due to inhalation of food and vomit (principal); I73.9 Peripheral vascular disease, unspecified; F03.90 Unspecified dementia, unspecified severity, without behavioral disturbance, psychotic disturbance, mood disturbance, and anxiety; R13.10 Dysphagia, unspecified; R89.2 Abnormal level of other drugs, medicaments and biological substances in specimens from other organs, systems and tissues; T45.515A Adverse effect of anticoagulants, initial encounter; N40.0 Benign prostatic hyperplasia without lower urinary tract symptoms; D72.829 Elevated white blood cell count, unspecified; G50.0 Trigeminal neuralgia; K22.5 Diverticulum of esophagus, acquired; F41.9 Anxiety disorder, unspecified; F32.9 Major depressive disorder, single episode, unspecified; H26.9 Unspecified cataract; Z95.9 Presence of cardiac and vascular implant and graft, unspecified; Z88.5 Allergy status to narcotic agent; Z88.0 Allergy status to penicillin; Z66 Do not resuscitate; R79.1 Abnormal coagulation profile
CPT/HCPCS: 1NSP; ERO; 36415; 36592; 71045; 81001; 82436; 87015; 87040; 87045; 87086; 87899; 87899-59; 93005; 93010; 93306; 97116-GO; 97161-GP; J0696; J1650